=== PATIENT | female | born 1940 | race American Indian/Alaskan Native ===

== ENCOUNTER 2017-11-11 20:04 | Inpatient (IN) | payer MEDICARE ==
--- NOTE | 2017-11-11 21:03 | ED PDOC ---
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 Patient states that she does not feel like herself.A bit confused at times. Patient's family states Patient was recently discharged from [facility] and received 1 radiation treatment 2 weeks ago. Patient denies any headaches, dizziness,fever,neck,back pain or any other complaints at this time. Neurosurgeon: Dr. Guerra PMD: Dr. Johnson Time/Duration: < week Symptom Onset: Gradual Symptom Course: Worsening Activities at Onset: Rest Context: Home Past Medical History - Provider Review Nursing Documentation Reviewed: Yes - Cardiac Hx Cardiac Disorders: Yes Hx Hypertension: Yes - Pulmonary Hx Respiratory Disorders: No - Neurological Hx Neurological Disorder: Yes Other/Comment: BRAIN TUMOR, VENTRICULAR SHUNT - HEENT Hx HEENT Disorder: No - Renal Hx Renal Disorder: No - Endocrine/Metabolic Hx Endocrine Disorders: No - Hematological/Oncological Hx Blood Disorders: No - Integumentary Hx Dermatological Disorder: No - Musculoskeletal/Rheumatological Hx Unsteady Gait: Yes - Gastrointestinal Hx Gastrointestinal Disorders: No - Genitourinary/Gynecological Hx Genitourinary Disorders: No - Psychiatric Hx Psychophysiologic Disorder: No Hx Substance Use: No - Surgical History Other/Comment: VENTRICULAR SHUNT Family/Social History - Physician Review Nursing Documentation Reviewed: Yes Family/Social History: No Known Family HX Smoking Status: Never Smoked Hx Alcohol Use: No Hx Substance Use: No Allergies/Home Meds Allergies/Adverse Reactions: Allergies ANTHONY Inhibitors Allergy (Verified 11/11/17 20:18) SWELLING Penicillins Allergy (Verified 11/11/17 20:18) SWELLING Home Medications: Home Meds Medication Instructions Recorded Confirmed Apixaban [Eliquis] 5 mg PO DAILY 11/11/17 11/11/17 Carvedilol [Coreg] 12.5 mg PO DAILY 11/11/17 11/11/17 Dexamethasone [Decadron] 4 mg PO BID 11/11/17 11/11/17 Furosemide [Lasix] 20 mg PO DAILY 11/11/17 11/11/17 Pregabalin [Lyrica] 50 mg PO DAILY 11/11/17 11/11/17 Review of Systems - Physician Review All systems were reviewed & negative as marked: Yes - Review of Systems Constitutional: absent: Fevers, Night Sweats Eyes: absent: Vision Changes ENT: absent: Hearing Changes Respiratory: absent: SOB, Cough Cardiovascular: absent: Chest Pain Gastrointestinal: absent: Abdominal Pain Genitourinary Female: absent: Dysuria Musculoskeletal: absent: Arthralgias Skin: absent: Rash Neurological: Other (decreasing motor skills and movement) Endocrine: absent: Diaphoresis Hemo/Lymphatic: absent: Adenopathy Psychiatric: absent: Anxiety, Depression Physical Exam Vital Signs Reviewed: Yes Vital Signs Temp Pulse Resp BP Pulse Ox 11/11/17 20:05 98 F 74 18 139/85 99 Temperature: Afebrile Blood Pressure: Normal Pulse: Regular Respiratory Rate: Normal Appearance: Positive for: Well-Appearing, Non-Toxic, Comfortable Pain Distress: None Mental Status: Positive for: Alert and Oriented X 3 - Systems Exam Head: Present: Atraumatic, Normocephalic Pupils: Present: PERRL Extroacular Muscles: Present: EOMI Conjunctiva: Present: Normal Mouth: Present: Moist Mucous Membranes Neck: Present: Normal Range of Motion Respiratory/Chest: Present: Clear to Auscultation, Good Air Exchange. No: Respiratory Distress, Accessory Muscle Use Cardiovascular: Present: Regular Rate and Rhythm, Normal S1, S2. No: Murmurs Abdomen: No: Tenderness, Distention, Peritoneal Signs Back: Present: Normal Inspection Upper Extremity: Present: Normal Inspection. No: Cyanosis, Edema Lower Extremity: Present: Normal Inspection. No: Edema Neurological: Present: Other (Finger to Nose unable to complete fully ) Skin: Present: Warm, Dry, Normal Color. No: Rashes Psychiatric: Present: Alert, Oriented x 3, Normal Insight, Normal Concentration Medical Decision Making ED Course and Treatment: 11/11/17 21:15 Impression: 77 year old female complaining of progressively decreasing movement and motor skills for a few days. Plan: -- EKG -- Chest X-ray -- Head CT w/o contrast -- Urinalysis -- Labs -- Reassess and disposition Progress Notes: 11/11/17 22:37 EKG: Ordered, reviewed, and independently interpreted the EKG. Rate : 67 BPM Rhythm : NSR Interpretation : LVH, nonspecific T wave changes 11/11/17 22:50 CT Head Without Intravenous Contrast FINDINGS: Brain: There is mild diffuse cerebral atrophy present, consistent with this patient's age. There is mild diffuse heterogeneity of the white matter attenuation, consistent with chronic white matter ischemic changes. No hemorrhage. Ventricles: The ventricular system demonstrates mild diffuse compensatory enlargement. Bones/joints: Right frontal and parietal patrick holes. Sinuses: There is nonspecific fluid within the maxillary and sphenoid sinuses. Mastoid air cells: Unremarkable as visualized. No mastoid effusion. Tubes, lines and devices: There is a right-sided ventriculostomy shunt catheter entering from a parietal approach and the tip terminates in the midline. There are coarse calcifications in the right frontal lobe along an old ventriculostomy shunt catheter tract. IMPRESSION: Age-related atrophy and chronic white matter ischemic changes, with no evidence of an acute intracranial abnormality. Maxillary and sphenoid sinus fluid suggesting sinusitis. Dictated and Authenticated by: Dana Swann MD 11/11/2017 10:48 PM Eastern Time ([place] & [place]) 11/11/17 23:54 Chest X-ray- No acute process, as read by me. 11/11/17 23:[address] Johnson for admission Altered Mental Status, Dr. Camp , neurologist, on consult. - Lab Interpretations Lab Results: 11/11/17 21:20 11/11/17 21:20 Lab Results 11/11/17 23:02: Urine Color Yellow, Urine Appearance Clear, Urine pH 6.0, Ur Specific [place] 1.025, Urine Protein Negative, Urine Glucose (UA) Negative, Urine Ketones Negative, Urine Blood Small H, Urine Nitrate Negative, Urine Bilirubin Negative, Urine Urobilinogen 0.2, Ur Leukocyte Esterase Trace H, Urine RBC 0 - 2, Urine WBC 1 - 3, Ur Epithelial Cells 0 - 2, Urine Bacteria Large 11/11/17 21:20: WBC 7.7, RBC 2.93 L, Hgb 9.2 L, Hct 28.0 L, MCV 95.6, MCH 31.4, MCHC 32.9, RDW 14.8 H, Plt Count 239, MPV 9.3 11/11/17 21:20: Sodium 146, Potassium 4.3, Chloride 115 H, Carbon Dioxide 22, Anion Gap 14, BUN 31 H, Creatinine 0.9, Est GFR ( Amer) > 60, Est GFR ( Non-Af Amer) > 60, Random Glucose 128 H, Calcium 9.4, Total Bilirubin 0.5, AST 41 H, ALT 19, Alkaline Phosphatase 84, Lactate Dehydrogenase 1153 H, Total Creatine Kinase 31 L, Troponin I < 0.01, Total Protein 6.4, Albumin 3.3, Globulin 3.0, Albumin/Globulin Ratio 1.1 11/11/17 21:20: PT 14.4 H, INR 1.26 H, APTT 28.2 - RAD Interpretation Radiology Orders: 11/11/17 20:51 HEAD W/O CONTRAST [CT] Stat 11/11/17 20:52 CHEST PORTABLE [RAD] Stat - Scribe Statement The provider has reviewed the documentation as recorded by the Scribe Michelle Shea Provider Scribe Attestation: All medical record entries made by the Scribe were at my direction and personally dictated by me. I have reviewed the chart and agree that the record accurately reflects my personal performance of the history, physical exam, medical decision making, and the department course for this patient. I have also personally directed, reviewed, and agree with the discharge instructions and disposition. Disposition/Present on Arrival - Present on Arrival Any Indicators Present on Arrival: No History of DVT/PE: No History of Uncontrolled Diabetes: No Urinary Catheter: No History of Decub. Ulcer: No History Surgical Site Infection Following: None - Disposition Have Diagnosis and Disposition been Completed?: Yes Diagnosis: Altered mental status Disposition: HOSPITALIZED Disposition Time: 23:52 Patient Problems: Current Active Problems Problem Status Onset Altered mental status Acute Condition: STABLE Referrals: Cathy Johnson MD [Primary Care Provider] - Follow up with primary Forms: [employer] ([place])
[2017-11-11 21:34] LABS: HEMOGLOBIN 9.2 g/dL (12.0-16.0); MEAN CELL VOLUME 95.6 fl (80.0-105.0); MEAN CORPUSCULAR HEMOGLOBIN 31.4 pg (25.0-35.0); MEAN CORPUSCULAR HGB CONC 32.9 g/dl (31.0-37.0); MEAN PLATELET VOLUME 9.3 fl (7.0-11.0); RBC 2.93 10^6/uL (3.5-6.1); RED CELL DISTRIBUTION WIDTH 14.8 % (11.5-14.5); WHITE BLOOD COUNT 7.7 10^3/ul (4.5-11.0)
[2017-11-11 21:41] LABS: ALB/GLOB RATIO 1.1 (1.1-1.8); ALBUMIN 3.3 g/dL (3.0-4.8); ALT/SGPT 19 U/L (7-56); AST/SGOT 41 U/L (14-36); BLOOD UREA NITROGEN 31 mg/dL (7-21); CALCIUM 9.4 mg/dL (8.4-10.5); GFR AFRICAN-AMERICAN > 60; GFR NON-AFRICAN AMERICAN > 60
[2017-11-11 21:52] LABS: TROPONIN I < 0.01 ng/mL
[2017-11-11 21:55] LABS: INR 1.26 (0.93-1.08); PARTIAL THROMBOPLASTIN TIME 28.2 Seconds (25.1-36.5); PROTHROMBIN TIME 14.4 SECONDS (9.4-12.5)
--- NOTE | 2017-11-11 22:48 | CT ---
EXAM: CT Head Without Intravenous Contrast CLINICAL HISTORY: 77 years old, female; Signs and symptoms; Dizziness; Additional info: Dizzy/weak TECHNIQUE: Axial computed tomography images of the head/brain without intravenous contrast. All CT scans at this facility use one or more dose reduction techniques, viz.: automated exposure control; ma/kV adjustment per patient size (including targeted exams where dose is matched to indication; i.e. head); or iterative reconstruction technique. Coronal and sagittal reformatted images were created and reviewed. COMPARISON: No relevant prior studies available. FINDINGS: Brain: There is mild diffuse cerebral atrophy present, consistent with this patient's age. There is mild diffuse heterogeneity of the white matter attenuation, consistent with chronic white matter ischemic changes. No hemorrhage. Ventricles: The ventricular system demonstrates mild diffuse compensatory enlargement. Bones/joints: Right frontal and parietal patrick holes. Sinuses: There is nonspecific fluid within the maxillary and sphenoid sinuses. Mastoid air cells: Unremarkable as visualized. No mastoid effusion. Tubes, lines and devices: There is a right-sided ventriculostomy shunt catheter entering from a parietal approach and the tip terminates in the midline. There are coarse calcifications in the right frontal lobe along an old ventriculostomy shunt catheter tract. IMPRESSION: Age-related atrophy and chronic white matter ischemic changes, with no evidence of an acute intracranial abnormality. Maxillary and sphenoid sinus fluid suggesting sinusitis.
[2017-11-11 23:06] LABS: URINE BILIRUBIN NEGATIVE (NEGATIVE); URINE BLOOD SMALL (NEGATIVE); URINE GLUCOSE (UA) NEGATIVE (NEGATIVE); URINE LEUKOCYTE ESTERASE TRACE Leu/uL (NEGATIVE); URINE PROTEIN NEGATIVE mg/dL (<30 mg/dL); URINE UROBILINOGEN 0.2 E.U./dL (<1 E.U./dL)
[2017-11-11 23:07] LABS: URINE APPEARANCE CLEAR (CLEAR); URINE COLOR YELLOW (YELLOW)
[2017-11-11 23:38] LABS: URINE BACTERIA LARGE (NEG); URINE EPITHELIAL CELLS 0 - 2 /hpf (0-5); URINE RBC 0 - 2 /hpf (0-2)
[2017-11-12 05:55] VITALS: BMI 26.6
--- NOTE | 2017-11-12 07:40 | RAD ---
HISTORY: weak COMPARISON: No prior. FINDINGS: LUNGS: There is a right-sided perihilar infiltrate. Due to its asymmetry this is suspicious for pneumonia. The left side is unremarkable PLEURA: No significant pleural effusion identified, no pneumothorax apparent. CARDIOVASCULAR: Normal. OSSEOUS STRUCTURES: No significant abnormalities. VISUALIZED UPPER ABDOMEN: Normal. OTHER FINDINGS: None. IMPRESSION: There is a right-sided perihilar infiltrate. Due to its asymmetry this is suspicious for pneumonia. The left side is unremarkable
[2017-11-12] MEDS: Dexamethasone 4 mg/1 ml IVP SCH ×2 (10:43→16:59)
--- NOTE | 2017-11-12 11:17 | CARD ---
APPROVED REPORT EKG Measurement Heart [id number] ID [id number] <Conclusion> Normal sinus rhythm Left ventricular hypertrophy with QRS widening Nonspecific T wave abnormality Abnormal ECG
--- NOTE | 2017-11-12 13:06 | US ---
PROCEDURE: Bilateral carotid artery duplex ultrasound HISTORY: Carotid stenosis syncope PHYSICIAN(S): Jeremy Rodriguez MD. TECHNIQUE: Duplex sonography and color-flow Doppler were used to evaluate the carotid bifurcations and limited segments of the vertebral arteries bilaterally. FINDINGS: The exam is limited by tortuous vessels. There is focal echogenic plaque noted at the carotid bifurcations bilaterally. The peak systolic velocity in the proximal right internal carotid artery is 81 cm/sec. This corresponds to a 20 to 39% proximal right ICA stenosis. Normal systolic velocities are noted in the proximal right external carotid artery. There is antegrade flow in the right vertebral artery. The peak systolic velocity in the proximal left internal carotid artery is 84 cm/sec. This corresponds to a 20 to 39% proximal left ICA stenosis. Normal systolic velocities are noted in the proximal left external carotid artery. There is antegrade flow in the left vertebral artery. IMPRESSION: 1. Bilateral 20-39% proximal ICA stenoses. 2. Antegrade flow in both vertebral arteries. 3. Limited study due to tortuous vessels
[2017-11-12] MEDS: Meropenem IV 1 gm in NS 50 ML IVPB SCH ×2 (14:58→22:05)
--- NOTE | 2017-11-12 23:36 | CON ---
DATE: 11/12/2017 REASON FOR CONSULT: Known metastatic breast cancer. HISTORY OF PRESENT ILLNESS: The patient is a 77-year-old female who is well known to me with past medical history significant for a metastatic breast cancer with recent diagnosis of brain mets and AUTO OVERHAULER shunt and status post radiation therapy, who presents to the emergency room now with complaints of progressive decreasing movement and motor skill for the last few days. The patient's daughter had called me a few days ago as that she was confused and not able to move around. She was recently discharged from [facility] post radiation treatments, but was not sent home on steroids. She does see a little better today. Denies any headaches, dizziness, fever, neck pain, back pain or any cough at the home. She has had recently progressive breast cancer, but has been unable to get any chemotherapy secondary to multiple other complications. 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 PAST SURGICAL HISTORY: Right mastectomy as well as cardiac procedures. PAST MEDICAL HISTORY: Significant for cardiomyopathy, known metastatic breast cancer as well as hypertension as well as a recent AUTO OVERHAULER shunt. SOCIAL HISTORY: Positive for smoking in the past, but quit several years ago. Denies any alcohol abuse. ALLERGIES: HAS KNOWN ALLERGIES TO ANTHONY INHIBITORS WELL PENICILLIN. MEDICATIONS: Takes Eliquis, Coreg, Decadron, Lasix and Lyrica at home. FAMILY HISTORY: Positive for breast cancer in several family members. REVIEW OF SYSTEMS: As per the HPI. PHYSICAL EXAMINATION: VITAL SIGNS: Her vitals reveal a temperature of 97.6, pulse of 62, respiratory rate of 18 and a blood pressure of 122/72. GENERAL: The patient is an elderly, pleasant female, lying in bed, in no acute distress. HEENT: Head and neck normocephalic, atraumatic. Eyes: Pupils equal, round and reactive to light and accommodation. Extraocular muscles are intact. There is some pallor. No icterus is noted. NECK: Supple with no adenopathy. No JVD. No thyromegaly. LUNGS: Decreased breath sounds bilaterally with no evidence of rhonchi. CARDIOVASCULAR: S1 and S2 are heard. ABDOMEN: Positive bowel sounds, soft, nontender and nondistended. No organomegaly is palpated. EXTREMITIES: There is edema, clubbing or cyanosis. LABORATORY DATA: Her white count is 7.7, hemoglobin is 9.2, hematocrit 28 and a platelet count of 239. Chemistries are within normal limits except for an elevated LDH. She did have a CT scan repeated on admission, which does not reveal any pathology. Chest x-ray also done on admission, it shows a possible right-sided perihilar infiltrate, otherwise unremarkable. ASSESSMENT AND PLAN: Elderly female with known metastatic breast cancer, recent diagnosis of brain metastasis, status post XRT and ventriculoperitoneal shunt, now with altered mental status, currently undergoing a workup. Long discussion with the patient and the family in the past regarding overall poor prognosis. She was about to start chemotherapy with Ixempra on palliative basis again as an outpatient, but is now admitted for the above altered mental status. Continue workup at this point. Also, repeat CBC in the morning to evaluate if she develop further anemia after hydration. Thank you for the consult. We will follow. Julio Cesar Dinh MD
--- NOTE | 2017-11-13 02:26 | CON ---
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 She does not feel like herself and recently discharged from [facility] and received radiation for two weeks. Denies any headache, dizziness. No neck pain or back pain. PAST MEDICAL HISTORY: As above. ALLERGIES: TO ANTHONY INHIBITOR AND PENICILLIN. HOME MEDICATIONS: Eliquis, Coreg, Decadron, Lasix and Lyrica. REVIEW OF SYSTEMS: A 10-point review of systems was negative. PHYSICAL EXAMINATION: HEENT: Normocephalic, atraumatic. NECK: Supple. NEUROLOGIC: Awake, oriented to self. Pupils reactive. EOM intact. Visual field full. No facial asymmetry. Tongue midline. Motor examination: Spontaneous movement of the extremities noted. Deep tendon reflexes 1+, both plantars are downgoing. Sensory appears intact. Cerebellar and gait, deferred. IMPRESSION: Altered mental status and brain mets with cancer of the breast. CAT scan of the head was negative. Workup in progress. PLAN: Continue present management. We will follow up. Panchito Camp MD
--- NOTE | 2017-11-13 04:44 | HP ---
HISTORY OF PRESENT ILLNESS: Patient is a 77-year-old black female who was brought in by daughter after she was having progressive weakness and has difficulty walking. Patient's daughter said, almost a week ago she was able to walk around, but lately she was unable to get even out of bed and she was also acting strange. So, she brought her to emergency room for further evaluation. I had a talk with Dr. Dinh. According to her she stopped taking her Decadron. Probably that would be the reason that she developed generalized weakness. Denies any fever or chills. No history of nausea, vomiting or diarrhea. Denies any fall. No trauma. PAST MEDICAL HISTORY: Significant for breast cancer that was diagnosed in 2002. When she was diagnosed it was stage III already and she has been getting chemo by Dr. Dinh. 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 Guerra. ALLERGIES: SHE IS ALLERGIC TO ANTHONY INHIBITORS AND PENICILLIN. MEDICATIONS AT HOME: She is on carvedilol (Coreg ) 12.5 daily, Decadron 4 mg twice a day, Lasix 20 mg daily, Lyrica 50 mg daily, and Eliquis 5 mg daily. SOCIAL HISTORY: She lives with her daughter. Denies smoking, drinking, or alcohol use. REVIEW OF SYSTEMS: Has generalized weakness, but no focal deficit. PHYSICAL EXAMINATION: GENERAL: She is awake, alert, oriented, able to communicate. VITAL SIGNS: She is afebrile, pulse 64, respirations 20, blood pressure 102/67. LUNGS: Bilateral good airflow. No rhonchi or crackles. HEART: S1 and S2 audible. ABDOMEN: Soft. Nontender. No rebound. No guarding. NEUROLOGIC: She is awake and alert, able to communicate. Moves all extremities, but has generalized weakness. LABORATORY DATA: WBC 7.7, hemoglobin 9.2, hematocrit 28, platelets 239, PT 14.4, INR 1.26. Chemistry, sodium 146, potassium 4.3, chloride 115, CO2 22, BUN 31, creatinine 0.9, blood sugar of 128. LFTs are within normal limits. AST 41. Lactate dehydrogenase is 1153, CPK 31. Urinalysis shows small blood. She had EKG done that shows normal sinus rhythm, left ventricular hypertrophy. CT scan of the head shows age related atrophy and chronic white matter ischemic changes with no evidence of acute intracranial abnormality. X-ray chest shows right-sided perihilar infiltrates, questionable pneumonia. ASSESSMENT: 1. Progressive weakness. 2. Metastatic breast cancer with brain metastasis. 3. Deconditioning and difficulty walking. 4. Hypertension. 5. Questionable pneumonia. PLAN: Patient has been started on IV Decadron. She is on doxycycline, and will continue on Eliquis. I will order for CT scan of the chest. Order for physical therapy and make further recommendations after CT scan of the chest is available and after physical therapy evaluation for subacute rehab, and restarted on Decadron also. Cathy Johnson MD
--- NOTE | 2017-11-13 08:49 | CON ---
DATE: 11/12/2017 LOCATION: The patient is in bed, has seen earlier today in 575, bed 1. The patient's daughter is present at the bedside. CHIEF COMPLAINT: Weakness times several days and change in mental status. HISTORY OF PRESENT ILLNESS: This is a 77-year-old female with breast cancer with central nervous system metastasis, hypertension, coronary artery disease who was admitted with altered mental status and daughter states that she is somewhat back to her baseline; however, she is still significantly ill. There is mild shortness of breath. No chest pain. There is no abdominal pain, diarrhea or constipation. No new headaches. REVIEW OF SYSTEMS: Reveals a 12-point review of systems is performed. PAST MEDICAL HISTORY: Significant for breast cancer with central nervous system metastasis, hypertension and coronary artery disease. PAST SURGICAL HISTORY: Significant for BULLET MAKER shunt. ALLERGIES: THE PATIENT IS ALLERGIC TO PENICILLIN AND ANTHONY INHIBITORS. MEDICATIONS AT HOME: Include Eliquis and the patient is on Decadron 4 mg b.i.d., carvedilol, furosemide and Lyrica. PHYSICAL EXAMINATION GENERAL: The patient is in bed, in no acute distress; however, chronically ill, debilitated. VITAL SIGNS: Temperature of 98 and blood pressure is 112/80. HEENT: Unremarkable. NECK: Supple. LUNGS: Have decreased breath sounds. HEART: Normal S1 and S2. ABDOMEN: Soft, nontender. LABORATORY DATA: Reveals the patient has a white count of 7.7, hemoglobin of 9. Chemistries are noted. BUN of 31, creatinine of 0.9. Urinalysis is noted. Microbiology is noted. The patient's chest x-ray is reported to be positive right-sided perihilar infiltrate. ASSESSMENT AND PLAN: This is a 77-year-old female with breast cancer with central nervous system metastasis, hypertension, coronary artery disease with healthcare-associated pneumonia, change in mental status, which is improving, procalcitonin was less than 0.05, speaks against bacterial pneumonia. We will check on the cultures, blood cultures and urine and sputum cultures and start the patient on doxycycline and meropenem. Overall prognosis is quite poor. We will follow with you. Jovan James MD
[2017-11-13] MEDS: Meropenem IV 1 gm in NS 50 ML IVPB SCH ×2 (10:53→21:41)
[2017-11-13] MEDS: Dexamethasone 4 mg/1 ml IVP SCH (10:54)
--- NOTE | 2017-11-13 12:45 | CT ---
PROCEDURE: CT Chest without contrast HISTORY: sob COMPARISON: None. TECHNIQUE: Contiguous axial images were obtained through the chest without intravenous contrast enhancement. Sagittal and coronal reconstructions were performed. Radiation dose (DLP): 716 mGy-cm. This CT exam was performed using one or more of the following dose reduction techniques: Automated exposure control, adjustment of the mA and/or kV according to patient size, and/or use of iterative reconstruction technique. FINDINGS: LUNGS: Clear lungs. Visualized airway clear. MEDIASTINUM: Unremarkable thoracic aorta. No aneurysm. Normal sized heart. Main pulmonary artery unremarkable. No vascular congestion. No lymphadenopathy. PLEURA: No pleural fluid. No pneumothorax. BONES: There is a large right anterior chest wall mass with destruction of the 4th and 5th ribs. The mass measures 5 x 8.4 cm. UPPER ABDOMEN: Grossly unremarkable. OTHER FINDINGS: None. IMPRESSION: There is a large right anterior chest wall mass with destruction of the 4th and 5th ribs. The mass measures 5 x 8.4 cm.
--- NOTE | 2017-11-13 22:09 | CP.PCM.PN ---
Subjective - Date & Time of Evaluation Date of Evaluation: 11/13/17 Time of Evaluation: 13:45 - Subjective Subjective: Patient is more awake and alert. No fevers. Objective - Vital Signs/Intake and Output Vital Signs (last 24 hours): Temp Pulse Resp BP Pulse Ox 98.1 F 66 18 132/72 100 11/13/17 14:00 11/13/17 14:00 11/13/17 14:00 11/13/17 14:00 11/13/17 14:00 Intake and Output: 11/13/17 11/14/17 18:59 06:59 Intake Total 300 Balance 300 - Medications Medications: Current Medications Acetaminophen (Tylenol 325mg Tab) 650 mg PO Q6H PRN PRN Reason: Fever >100.4 F Apixaban (Eliquis) 5 mg PO DAILY [facility] PRN Reason: Protocol Last Admin: 11/13/17 10:54 Dose: 5 mg Carvedilol (Coreg) 12.5 mg PO DAILY [facility] Last Admin: 11/13/17 10:54 Dose: 12.5 mg Dexamethasone (Decadron Inj) 4 mg IVP TID [facility] Doxycycline Hyclate (Doryx) 100 mg PO Q12 [facility] PRN Reason: Protocol Stop: 11/21/17 22:01 Last Admin: 11/13/17 21:41 Dose: 100 mg Meropenem (Merrem Iv 1 Gm Premix) 50 mls @ 100 mls/hr IVPB Q12 [facility] PRN Reason: Protocol Last Admin: 11/13/17 21:41 Dose: 100 mls/hr Ondansetron HCl (Zofran Inj) 4 mg IVP Q6H PRN PRN Reason: Nausea/Vomiting Pregabalin (Lyrica) 50 mg PO DAILY [facility] Last Admin: 11/13/17 10:54 Dose: 50 mg - Labs Labs: PT 14.4 SECONDS (9.4-12.5) H 11/11/17 21:20 INR 1.26 (0.93-1.08) H 11/11/17 21:20 APTT 28.2 Seconds (25.1-36.5) 11/11/17 21:20 - Constitutional Appears: Chronically Ill - Respiratory Exam Respiratory Exam: Decreased Breath Sounds Additional comments: left anterior chest wall port in place - Cardiovascular Exam Cardiovascular Exam: +S1, +S2 - GI/Abdominal Exam GI & Abdominal Exam: Soft. absent: Tenderness Assessment and Plan - Assessment and Plan (Free Text) Plan: Assessment S/P altered mental status R/O sepsis R/O bacteremia breast cancer with DAYTIME BABYSITTER metastases CAD Plan on Doxcycycline and Merrem; CT chest was done which does not show infiltrates but shows a mass, probably metastasis follow up repeat urine cx and blood cx - will d/c antibiotics if cultures are negative will monitor clinically overall prognosis is poor
--- NOTE | 2017-11-13 22:53 | PN ---
DATE: SUBJECTIVE: The patient is a 77-year-old, seen and examined, lying in bed. Seems to be comfortable. Complaining of generalized weakness. Complaining of difficulty walking. No nausea or vomiting. No diarrhea. OBJECTIVE: VITAL SIGNS: She is afebrile, pulse 66, respirations 18, blood pressure 132/72. LUNGS: Bilateral good airflow. No rhonchi or crackle. HEART: S1 and S2 audible. ABDOMEN: Soft. Nontender. No rebound. No guarding. NEUROLOGIC: She is awake, alert, oriented, communicative. Had generalized weakness. LABORATORY DATA: Procalcitonin is 0.05. DIAGNOSTIC DATA: She had CT scan of the chest done that shows large right anterior chest wall mass with destruction of the fourth and fifth rib. The mass may of 5 x 8.4 cm otherwise lungs are clear. ASSESSMENT: 1. Metastatic stage IV right breast cancer. 2. Status post mastectomy. 3. Status post radiation and chemotherapy. 4. Brain metastasis. 5. Status post ventriculoperitoneal shunt. 6. Generalized weakness, difficulty walking. PLAN: CT scan shows no evidence of pneumonia. However, patient is on doxycycline and meropenem and procalcitonin is low probably antibiotic can be discontinued, leave it up to ID discretion. However, patient is currently on Decadron 4 mg twice a day, can increase to t.i.d. Arrangement is being made to send her to subacute rehab. Once the arrangement is made, patient can be transferred to subacute rehab. Cathy Johnson MD
[2017-11-14] MEDS ORDERED: Dexamethasone 4 mg/1 ml IVP SCH (10:00)
[2017-11-14] MEDS: Meropenem IV 1 gm in NS 50 ML IVPB SCH ×2 (10:59→21:03)
[2017-11-14] MEDS: Vancomycin 1gm in NS 250ml 1 GM/250 ML BAG IVPB SCH (21:04)
--- NOTE | 2017-11-15 01:39 | PN ---
DATE: 11/14/2017 SUBJECTIVE: The patient was seen earlier this morning, bed 1. PHYSICAL EXAMINATION: VITAL SIGNS: Temperature is 97, blood pressure is 118/60, respiratory rate is 16. HEENT: Unremarkable. NECK: Supple. LUNGS: Have decreased breath sounds. HEART: Normal S1, S2. ABDOMEN: Soft. LABORATORY EXAMINATION: Reveals a white count of 7.7, hemoglobin of 9. Chemistries reveals a BUN of 31, creatinine of 0.9 and procalcitonin is less than 0.05. Microbiology is noted with Gram-positive cocci. Blood cultures are waiting for identification and sensitivity. ASSESSMENT AND PLAN: This is a 77-year-old female with altered mental status with Gram-positive cocci bacteremia, on doxycycline and meropenem. We will give dose of vancomycin. Pending further identification and sensitivity of the organism. Jovan James MD
[2017-11-15] MEDS: Meropenem IV 1 gm in NS 50 ML IVPB SCH ×3 (05:34→23:25)
[2017-11-15] MEDS: Vancomycin 1gm in NS 250ml 1 GM/250 ML BAG IVPB SCH ×2 (09:50→23:26)
--- NOTE | 2017-11-15 11:03 | DS ---
HISTORY OF PRESENT ILLNESS: The patient is a 77 years old, seen and examined, lying in bed, seems to become comfortable.. She came in because of difficulty walking according to Dr. Dinh. She stopped taking Decadron and developed this weakness. No nausea, vomiting. No diarrhea. PHYSICAL EXAMINATION: VITAL SIGNS: She is afebrile, pulse 65, respirations 20, blood pressure 158/77. LUNGS: Bilateral good airflow, no rhonchi or crackle. HEART: S1, S2 audible. ABDOMEN: Soft, nontender, no rebound, no guarding. NEUROLOGIC: She is awake and alert, communicative, has generalized weakness. LABORATORY DATA: Procalcitonin is 0.05. Blood cultures, urine cultures are negative. ASSESSMENT AND PLAN: 1. Generalized weakness. 2. History of right breast carcinoma, status post mastectomy followed by radiation and chemotherapy. 3. Brain metastasis. 4. Bony metastasis. 5. Deconditioning and difficulty walking. 6. Right anterior chest wall mass with 4th and 5th rib destruction. PLAN: Currently, the patient is on Carvedilol. She is on dexamethasone 4 mg 3 times a day. We will cut down to 4 mg twice a day and we will switch it to p.o. The patient will be accepted in care center and being discharged to care center there. The patient need to stay on current regimen. Discussed with Dr. James. We will stop her IV antibiotic also since procalcitonin is low and there is no evidence of infiltrate. Cathy Johnson MD
--- NOTE | 2017-11-15 12:59 | PN ---
DATE: 11/15/2017 SUBJECTIVE: The patient is 77 years old, seen and examined, very tired, unable to get out of chair or stand up. Otherwise, eating and tolerating. No fever. No chills. No nausea or vomiting. No diarrhea. PHYSICAL EXAMINATION: VITAL SIGNS: She is afebrile, pulse 64, respirations 20, blood pressure 154/89. LUNGS: Bilateral good airflow. No rhonchi or crackle. HEART: S1 and S2 audible. ABDOMEN: Soft. Nontender. No rebound. No guarding. NEUROLOGIC: The patient is awake, alert, oriented, able to communicate, has generalized weakness. LABORATORY EXAM: WBC is 7.7, hemoglobin 9.2, hematocrit 28, platelet Of 239. PT 14.4, INR 1.26. Chemistry: Blood sugar is 129. ASSESSMENT: 1. Generalized osteoarthritis. 2. Generalized weakness. 3. Right breast cancer, status post mastectomy. 4. Brain metastasis. 5. Deconditioning and difficulty walking. 6. Blood culture positive for coagulase-negative Staphylococcus. PLAN: The patient is empirically on IV antibiotic. We will repeat blood cultures and follow the identity of the bacteria and make further recommendation if it is contaminant or if real infection and then we will make discharge plan. [employer] are trying to get her into rehab, but she has not been accepted in [facility] or [facility]. The patient's daughter do not want her to go to [facility]. So eventually she might be able to go home with home therapy. Cathy Johnson MD
--- NOTE | 2017-11-15 14:10 | CP.PCM.PN ---
Subjective - Date & Time of Evaluation Date of Evaluation: 11/15/17 Time of Evaluation: 12:30 - Subjective Subjective: Patient frustrated about options after hospital stay, no fevers. Objective - Vital Signs/Intake and Output Vital Signs (last 24 hours): Temp Pulse Resp BP Pulse Ox 98.1 F 64 20 154/89 H 98 11/15/17 08:28 11/15/17 08:28 11/15/17 08:28 11/15/17 08:28 11/15/17 08:28 Intake and Output: 11/15/17 11/15/17 06:59 18:59 Intake Total 240 Balance 240 - Medications Medications: Current Medications Acetaminophen (Tylenol 325mg Tab) 650 mg PO Q6H PRN PRN Reason: Fever >100.4 F Apixaban (Eliquis) 5 mg PO DAILY [facility] PRN Reason: Protocol Last Admin: 11/15/17 09:51 Dose: 5 mg Carvedilol (Coreg) 12.5 mg PO DAILY [facility] Last Admin: 11/15/17 09:51 Dose: 12.5 mg Docusate Sodium (Colace) 100 mg PO DAILY [facility] Last Admin: 11/15/17 09:51 Dose: 100 mg Meropenem (Merrem Iv 1 Gm Premix) 50 mls @ 100 mls/hr IVPB Q8 [facility] PRN Reason: Protocol Stop: 11/23/17 22:01 Last Admin: 11/15/17 05:34 Dose: 100 mls/hr Vancomycin HCl (Vancomycin 1gm) 1 gm in 250 mls @ 167 mls/hr IVPB Q12H [facility] PRN Reason: Protocol Stop: 11/23/17 20:01 Last Admin: 11/15/17 09:50 Dose: 167 mls/hr Levetiracetam (Keppra) 250 mg PO BID [facility] Last Admin: 11/15/17 09:51 Dose: 250 mg Ondansetron HCl (Zofran Inj) 4 mg IVP Q6H PRN PRN Reason: Nausea/Vomiting Pregabalin (Lyrica) 50 mg PO DAILY [facility] Last Admin: 11/15/17 09:51 Dose: 50 mg - Labs Labs: PT 14.4 SECONDS (9.4-12.5) H 11/11/17 21:20 INR 1.26 (0.93-1.08) H 11/11/17 21:20 APTT 28.2 Seconds (25.1-36.5) 11/11/17 21:20 - Constitutional Appears: Chronically Ill - Head Exam Head Exam: NORMAL INSPECTION - ENT Exam ENT Exam: Mucous Membranes Moist - Neck Exam Neck Exam: absent: Meningismus - Respiratory Exam Respiratory Exam: Decreased Breath Sounds Additional comments: left anterior chest wall port intact - Cardiovascular Exam Cardiovascular Exam: +S1, +S2 - GI/Abdominal Exam GI & Abdominal Exam: Soft. 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
[2017-11-16] MEDS: Meropenem IV 1 gm in NS 50 ML IVPB SCH (05:29)
[2017-11-16] MEDS: Vancomycin 1.5 GM in Sodium Chloride 0.9% 500 ML IVPB SCH ×2 (09:19→20:04)
--- NOTE | 2017-11-16 13:09 | PN ---
DATE: 11/16/2017 SUBJECTIVE: The patient is a 77 years old, seen and examined, lying in bed, seems to be comfortable, upset that she is not being accepted in any rehab. Denies any nausea or vomiting. No diarrhea, no fever, no chills. PHYSICAL EXAMINATION: VITAL SIGNS: She is afebrile, pulse 83, respirations 20, blood pressure 126/75. LUNGS: Bilateral good airflow. No rhonchi or crackles. HEART: S1 and S2 audible. ABDOMEN: Soft. Nontender. No rebound. No guarding. NEUROLOGIC: She is awake, alert, oriented, communicative. LABORATORY DATA: Two blood cultures positive for Gram-negative Staph. Repeat cultures are pending. Urine cultures are negative. ASSESSMENT: 1. Coagulase-negative bacteremia. 2. Right breast cancer with metastasis to the brain. 3. Right anterior chest wall mass with destruction of 4th and 5th rib. 4. Deconditioning and difficulty walking. PLAN: Awaiting second set of blood cultures and in the meantime, we will continue the patient on vancomycin. I spoke to Dr. Watts. If repeat cultures are positive, we might have to either remove Port-A-Cath or do antibiotic lock. Discussed with the patient's daughter. Cathy Johnson MD
--- NOTE | 2017-11-16 13:49 | CP.PCM.PN ---
Subjective - Date & Time of Evaluation Date of Evaluation: 11/16/17 Time of Evaluation: 12:50 - Subjective Subjective: No fevers, not in distress. Objective - Vital Signs/Intake and Output Vital Signs (last 24 hours): Temp Pulse Resp BP Pulse Ox 97.7 F 61 18 107/62 100 11/15/17 14:00 11/15/17 14:00 11/15/17 14:00 11/15/17 14:00 11/15/17 14:00 Intake and Output: 11/16/17 11/16/17 06:59 18:59 Intake Total 120 Balance 120 - Medications Medications: Current Medications Acetaminophen (Tylenol 325mg Tab) 650 mg PO Q6H PRN PRN Reason: Fever >100.4 F Apixaban (Eliquis) 5 mg PO DAILY [facility] PRN Reason: Protocol Last Admin: 11/15/17 09:51 Dose: 5 mg Carvedilol (Coreg) 12.5 mg PO DAILY [facility] Last Admin: 11/15/17 09:51 Dose: 12.5 mg Docusate Sodium (Colace) 100 mg PO DAILY [facility] Last Admin: 11/15/17 09:51 Dose: 100 mg Meropenem (Merrem Iv 1 Gm Premix) 50 mls @ 100 mls/hr IVPB Q8 [facility] PRN Reason: Protocol Stop: 11/23/17 22:01 Last Admin: 11/16/17 05:29 Dose: 100 mls/hr Vancomycin HCl (Vancomycin 1gm) 1 gm in 250 mls @ 167 mls/hr IVPB Q12H [facility] PRN Reason: Protocol Stop: 11/23/17 20:01 Last Admin: 11/15/17 23:26 Dose: 167 mls/hr Levetiracetam (Keppra) 250 mg PO BID [facility] Last Admin: 11/15/17 17:00 Dose: 250 mg Ondansetron HCl (Zofran Inj) 4 mg IVP Q6H PRN PRN Reason: Nausea/Vomiting Pregabalin (Lyrica) 50 mg PO DAILY [facility] Last Admin: 11/15/17 09:51 Dose: 50 mg - Labs Labs: PT 14.4 SECONDS (9.4-12.5) H 11/11/17 21:20 INR 1.26 (0.93-1.08) H 11/11/17 21:20 APTT 28.2 Seconds (25.1-36.5) 11/11/17 21:20 - Constitutional Appears: Chronically Ill - Head Exam Head Exam: NORMAL INSPECTION - Neck Exam Neck Exam: absent: Meningismus - Respiratory Exam Respiratory Exam: Decreased Breath Sounds Additional comments: left anterior chest wall port in place - Cardiovascular Exam Cardiovascular Exam: +S1, +S2 - GI/Abdominal Exam GI & Abdominal Exam: Soft. 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 Johnson
[2017-11-17] MEDS: Vancomycin 1.5 GM in Sodium Chloride 0.9% 500 ML IVPB SCH ×2 (09:01→19:35)
--- NOTE | 2017-11-17 10:58 | PN ---
DATE: 11/17/2017 SUBJECTIVE: The patient has no complaints of any chest pain. No shortness of breath. No headaches or dizziness. PHYSICAL EXAMINATION: VITAL SIGNS: Temperature is 98.5, pulse of 82, blood pressure is 117/63, respirations 20. GENERAL: The patient is lying in bed, flat, comfortable. HEENT: No oral lesion. Anicteric sclerae. Moist mucosa. NECK: No JVD, adenopathy, or thyromegaly. CARDIOVASCULAR: S1 and S2, regular. No murmurs, rubs, or gallops. LUNGS: Clear to auscultation bilaterally. No wheeze, rales, or rhonchi. ABDOMEN: Bowel sounds are positive, soft, nontender and nondistended. EXTREMITIES: No cyanosis, clubbing or edema. LABORATORY DATA: White count of 7.7, hemoglobin of 9.2. Creatinine 0.9. ASSESSMENT: 1. Breast cancer with metastasis to brain. 2. Bacteremia. 3. Right chest mass with destruction of fourth and fifth rib. 4. Gait dysfunction. 5. Penicillin allergy. 6. Delirium, improved. PLAN: The patient is on carvedilol. The patient is going to continue on Eliquis for anticoagulation. The patient is on Keppra because of the mets to the brain and seizure prophylaxis. The patient is on Zofran as needed. The patient is on vancomycin for antibiotics. The patient's blood cultures that were repeated are negative. We will repeat the patient's blood work tomorrow. Tony Zaragoza MD
--- NOTE | 2017-11-17 15:12 | CP.PCM.PN ---
Subjective - Date & Time of Evaluation Date of Evaluation: 11/17/17 Time of Evaluation: 14:15 - Subjective Subjective: Comfortable in bed, no fevers. Objective - Vital Signs/Intake and Output Vital Signs (last 24 hours): Temp Pulse Resp BP Pulse Ox 98.5 F 82 20 117/63 98 11/16/17 22:00 11/16/17 22:00 11/16/17 22:00 11/16/17 22:00 11/16/17 22:00 Intake and Output: 11/17/17 11/17/17 06:59 18:59 Intake Total 120 100 Balance 120 100 - Medications Medications: Current Medications Acetaminophen (Tylenol 325mg Tab) 650 mg PO Q6H PRN PRN Reason: Fever >100.4 F Apixaban (Eliquis) 5 mg PO DAILY [facility] PRN Reason: Protocol Last Admin: 11/16/17 09:21 Dose: 5 mg Carvedilol (Coreg) 12.5 mg PO DAILY [facility] Last Admin: 11/16/17 09:21 Dose: 12.5 mg Docusate Sodium (Colace) 100 mg PO DAILY [facility] Last Admin: 11/16/17 09:22 Dose: 100 mg Vancomycin HCl 1.5 gm/ Sodium (Chloride) 500 mls @ 167 mls/hr IVPB Q12H [facility] PRN Reason: Protocol Last Admin: 11/16/17 20:04 Dose: 167 mls/hr Levetiracetam (Keppra) 250 mg PO BID [facility] Last Admin: 11/16/17 17:38 Dose: 250 mg Ondansetron HCl (Zofran Inj) 4 mg IVP Q6H PRN PRN Reason: Nausea/Vomiting Pregabalin (Lyrica) 50 mg PO DAILY [facility] Last Admin: 11/16/17 09:19 Dose: 50 mg - Labs Labs: PT 14.4 SECONDS (9.4-12.5) H 11/11/17 21:20 INR 1.26 (0.93-1.08) H 11/11/17 21:20 APTT 28.2 Seconds (25.1-36.5) 11/11/17 21:20 - Constitutional Appears: Chronically Ill - Head Exam Head Exam: NORMAL INSPECTION - ENT Exam ENT Exam: Mucous Membranes Moist - Neck Exam Neck Exam: absent: Meningismus - Respiratory Exam Respiratory Exam: Decreased Breath Sounds Additional comments: left anterior chest wall port in place - Cardiovascular Exam Cardiovascular Exam: +S1, +S2 - GI/Abdominal Exam GI & Abdominal Exam: Soft. 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 Johnson
[2017-11-18 06:23] LABS: MEAN CELL VOLUME 96.9 fl (80.0-105.0); MEAN CORPUSCULAR HEMOGLOBIN 31.3 pg (25.0-35.0); MEAN CORPUSCULAR HGB CONC 32.3 g/dl (31.0-37.0); MEAN PLATELET VOLUME 9.4 fl (7.0-11.0); RBC 2.88 10^6/uL (3.5-6.1); WHITE BLOOD COUNT 4.7 10^3/ul (4.5-11.0)
[2017-11-18 06:46] LABS: ALB/GLOB RATIO 0.9 (1.1-1.8); ALBUMIN 2.3 g/dL (3.0-4.8); ALT/SGPT 33 U/L (7-56); AST/SGOT 36 U/L (14-36); BLOOD UREA NITROGEN 19 mg/dL (7-21); CALCIUM 8.2 mg/dL (8.4-10.5); GFR AFRICAN-AMERICAN > 60; GFR NON-AFRICAN AMERICAN > 60
[2017-11-18] MEDS: Vancomycin 1.5 GM in Sodium Chloride 0.9% 500 ML IVPB SCH ×2 (08:47→22:00)
--- NOTE | 2017-11-18 13:19 | PN ---
DATE: 11/18/2017 SUBJECTIVE: The patient is a 77-year-old, seen and examined, lying in bed, seems to be comfortable. No nausea or vomiting. No diarrhea. Complaining of generalized weakness and difficulty walking. OBJECTIVE: VITAL SIGNS: She is afebrile, pulse 84, respirations 18, blood pressure 102/98. LUNGS: Bilateral fair airflow. No rhonchi or crackles. HEART: S1 and S2 audible. ABDOMEN: Soft, nontender, no rebound, no guarding. NEUROLOGIC: She is awake, alert, oriented, communicative. LABORATORY EXAM: WBC is 4.7, hemoglobin 9, hematocrit 27, platelets of 146. Chemistry: Sodium 142, potassium 4.2, chloride 110, CO2 of 28. BUN 19, creatinine 0.6. Blood sugar of 83. Her four sets of blood cultures are positive for coag-negative Staph. The patient has Port-A-Cath, on chemotherapy. ASSESSMENT: 1. Deconditioning and difficulty walking. 2. Bacteremia. 3. History of cancer breast, on chemotherapy. Her last chemo was almost a year ago. 4. Paroxysmal atrial fibrillation. PLAN: We will order for an echocardiogram. I will request Dr. Collins to evaluate the patient. We need to remove Port-A-Cath, spoke to Dr. Dinh. She has no intention to give her chemotherapy near future. Spoke to patient, explained to her, she seems to agree. I will inform her daughter, Alena also. Cathy Johnson MD
--- NOTE | 2017-11-18 13:54 | CP.PCM.CON ---
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 The patient also reports progressive weakness in conjunction with diffculty ambulating. Patient denies any dizziness, changes in vision, headache, nausea, vomiting, syncopal episodes, chest pain, shortness of breath, fever, chills, or any other complaints. Surgery was consulted for a removal of a port a cath secondary to infection. Past medical history: hypertension, coronary artery disease, breast cancer with brain metastasis Past surgical history: Cholecystectomy, mastectomy Medications: Carvedilol, Furosemide, Lyrica Allergies: ANTHONY inhibitors, Penicillin Social history: Denies smoking or illicit drug use. Social drinker. Lives with daughter Review of Systems - Constitutional Constitutional: As Per HPI - EENT Eyes: As Per HPI Nose/Mouth/Throat: As Per HPI - Breasts Breasts: As Per HPI - Cardiovascular Cardiovascular: As Per HPI - Respiratory Respiratory: As Per HPI - Gastrointestinal Gastrointestinal: As Per HPI - Musculoskeletal Musculoskeletal: As Per HPI - Integumentary Integumentary: As Per HPI - Neurological Neurological: As Per HPI - Psychiatric Psychiatric: As Per HPI - Endocrine Endocrine: As Per HPI Past Patient History - Past Social History Smoking Status: Never Smoked - CARDIAC Hx Cardiac Disorders: Yes Hx Hypertension: Yes - PULMONARY Hx Respiratory Disorders: No - NEUROLOGICAL Hx Neurological Disorder: Yes Other/Comment: BRAIN TUMOR, VENTRICULAR SHUNT - HEENT Hx HEENT Problems: No - RENAL Hx Chronic Kidney Disease: No - ENDOCRINE/METABOLIC Hx Endocrine Disorders: No - HEMATOLOGICAL/ONCOLOGICAL Hx Blood Disorders: No - INTEGUMENTARY Hx Dermatological Problems: No - MUSCULOSKELETAL/RHEUMATOLOGICAL Hx Falls: Yes Hx Unsteady Gait: Yes - GASTROINTESTINAL Hx Gastrointestinal Disorders: No - GENITOURINARY/GYNECOLOGICAL Hx Genitourinary Disorders: No - PSYCHIATRIC Hx Psychophysiologic Disorder: No - SURGICAL HISTORY Other/Comment: VENTRICULAR SHUNT Meds Allergies/Adverse Reactions: Allergies Allergy/AdvReac Type Severity Reaction Status Date / Time ANTHONY Inhibitors Allergy SWELLING Verified 11/11/17 20:18 Penicillins Allergy SWELLING Verified 11/11/17 20:18 - Medications Medications: Current Medications Acetaminophen (Tylenol 325mg Tab) 650 mg PO Q6H PRN PRN Reason: Fever >100.4 F Apixaban (Eliquis) 5 mg PO DAILY [facility] PRN Reason: Protocol Last Admin: 11/18/17 12:53 Dose: 5 mg Carvedilol (Coreg) 12.5 mg PO DAILY [facility] Last Admin: 11/18/17 12:53 Dose: 12.5 mg Docusate Sodium (Colace) 100 mg PO DAILY [facility] Last Admin: 11/18/17 12:53 Dose: 100 mg Vancomycin HCl 1.5 gm/ Sodium (Chloride) 500 mls @ 167 mls/hr IVPB Q12H [facility] PRN Reason: Protocol Last Admin: 11/18/17 08:47 Dose: 167 mls/hr Levetiracetam (Keppra) 250 mg PO BID [facility] Last Admin: 11/18/17 12:53 Dose: 250 mg Ondansetron HCl (Zofran Inj) 4 mg IVP Q6H PRN PRN Reason: Nausea/Vomiting Pregabalin (Lyrica) 50 mg PO DAILY [facility] Last Admin: 11/18/17 12:53 Dose: 50 mg Physical Exam - Head Exam Head Exam: ATRAUMATIC, NORMAL INSPECTION, NORMOCEPHALIC - Eye Exam Eye Exam: EOMI, Normal appearance - ENT Exam ENT Exam: Mucous Membranes Moist - Respiratory Exam Respiratory Exam: NORMAL BREATHING PATTERN - Cardiovascular Exam Cardiovascular Exam: REGULAR RHYTHM - GI/Abdominal Exam GI & Abdominal Exam: Normal Bowel Sounds, Soft - Back Exam Back exam: NORMAL INSPECTION. absent: paraspinal tenderness - Neurological Exam Neurological exam: Alert, CN II-XII Intact - Psychiatric Exam Psychiatric exam: Normal Affect, Normal Mood - Skin Skin Exam: Dry, Intact Results - Vital Signs Recent Vital Signs: Last Vital Signs Temp 98.1 F 11/18/17 08:48 Pulse 80 11/18/17 12:53 Resp 18 11/18/17 08:48 BP 113/60 11/18/17 12:53 Pulse Ox 98 11/18/17 08:48 - Labs Result Diagrams: 11/18/17 05:50 11/18/17 05:50 Labs: Laboratory Results - last 24 hr 11/18/17 11/18/17 05:50 05:50 WBC 4.7 D RBC 2.88 L Hgb 9.0 L Hct 27.9 L MCV 96.9 MCH 31.3 MCHC 32.3 RDW 15.0 H Plt Count 146 MPV 9.4 Sodium 142 Potassium 4.2 Chloride 110 H Carbon Dioxide 28 Anion Gap 8 L BUN 19 Creatinine 0.6 L Est GFR ( Amer) > 60 Est GFR (Non-Af Amer) > 60 Random Glucose 83 Calcium 8.2 L Magnesium 1.9 Total Bilirubin 0.4 AST 36 ALT 33 Alkaline Phosphatase 49 Total Protein 4.7 L Albumin 2.3 L Globulin 2.4 Albumin/Globulin Ratio 0.9 L Assessment & Plan - Assessment and Plan (Free Text) Assessment: 77 year old female with an infected port a cath. Plan: -O.R. tentatively scheduled for tomorrow for removal of port cath. -IV antibiotics -Medical management per Primary care team Will discuss with Dr. Springer. <Hiwot Fournier - Last Filed: 11/18/17 15:30> History of Present Illness - History of Present Illness History of Present Illness: Surgery consult Pt was dx w R breast CA and had mastectomy on 2002. She also had the port since then. Last chemo was a few weeks ago. Denies redness, pain, swelling on the port site, bleeding, discharge. Blood cx was + for Gram + cocci. Meds - Medications Medications: Current Medications Acetaminophen (Tylenol 325mg Tab) 650 mg PO Q6H PRN PRN Reason: Fever >100.4 F Apixaban (Eliquis) 5 mg PO DAILY [facility] PRN Reason: Protocol Last Admin: 11/18/17 12:53 Dose: 5 mg Carvedilol (Coreg) 12.5 mg PO DAILY [facility] Last Admin: 11/18/17 12:53 Dose: 12.5 mg Docusate Sodium (Colace) 100 mg PO DAILY [facility] Last Admin: 11/18/17 12:53 Dose: 100 mg Vancomycin HCl 1.5 gm/ Sodium (Chloride) 500 mls @ 167 mls/hr IVPB Q12H [facility] PRN Reason: Protocol Last Admin: 11/18/17 08:47 Dose: 167 mls/hr Levetiracetam (Keppra) 250 mg PO BID [facility] Last Admin: 11/18/17 12:53 Dose: 250 mg Ondansetron HCl (Zofran Inj) 4 mg IVP Q6H PRN PRN Reason: Nausea/Vomiting Pregabalin (Lyrica) 50 mg PO DAILY [facility] Last Admin: 11/18/17 12:53 Dose: 50 mg Physical Exam - Skin Additional comments: L chest has port. No signs of infection . No erythema, no swelling, non tender Results - Vital Signs Recent Vital Signs: Last Vital Signs Temp 98.7 F 11/18/17 15:04 Pulse 79 11/18/17 15:04 Resp 18 11/18/17 15:04 BP 115/58 L 11/18/17 15:04 Pulse Ox 100 11/18/17 15:04 - Labs Result Diagrams: 11/18/17 05:50 11/18/17 05:50 Labs: Laboratory Results - last 24 hr 11/18/17 11/18/17 05:50 05:50 WBC 4.7 D RBC 2.88 L Hgb 9.0 L Hct 27.9 L MCV 96.9 MCH 31.3 MCHC 32.3 RDW 15.0 H Plt Count 146 MPV 9.4 Sodium 142 Potassium 4.2 Chloride 110 H Carbon Dioxide 28 Anion Gap 8 L BUN 19 Creatinine 0.6 L Est GFR ( Amer) > 60 Est GFR (Non-Af Amer) > 60 Random Glucose 83 Calcium 8.2 L Magnesium 1.9 Total Bilirubin 0.4 AST 36 ALT 33 Alkaline Phosphatase 49 Total Protein 4.7 L Albumin 2.3 L Globulin 2.4 Albumin/Globulin Ratio 0.9 L Assessment & Plan - Assessment and Plan (Free Text) Assessment: BLood cx : G + C Plan: NPO after midnight for OR on Mon Dr. Springer <Daryn Springer - Last Filed: 11/21/17 11:19> Results - Vital Signs Recent Vital Signs: Last Vital Signs Temp 97 F L 11/20/17 14:45 Pulse 80 11/20/17 14:45 Resp 20 11/20/17 14:45 BP 109/83 11/20/17 14:45 Pulse Ox 98 11/20/17 14:45 - Labs Result Diagrams: 11/18/17 05:50 11/18/17 05:50 Assessment & Plan - Assessment and Plan (Free Text) Plan: Dx Infected PAC-Bacteremia Sonu Removal PAC This consult done under my direct supervision Hiram Springer MD FACS
[2017-11-18] MEDS: Sodium Chloride 0.9% 1,000 ML IV SCH (17:17)
--- NOTE | 2017-11-18 19:22 | US ---
PROCEDURE: Left upper extremity venous ultrasound HISTORY: Arm pain and swelling. Evaluate for deep venous thrombosis. PHYSICIAN(S): Jeremy Rodriguez MD. FINDINGS: The visualized leftinternal jugular vein is sonographically normal and compressible. No evidence of obstruction or thrombus is seen. The visualized segments of the left subclavian vein are patent with normal waveforms. No sonographic evidence of obstruction or thrombosis is seen. The visualized deep venous system of the proximal leftupper extremity is sonographically normal and compressible. IMPRESSION: 1. No sonographic evidence for deep venous thrombosis in the visualized segments of the left upper extremity.
--- NOTE | 2017-11-18 19:28 | CP.PCM.PN ---
Subjective - Date & Time of Evaluation Date of Evaluation: 11/18/17 Time of Evaluation: 12:50 - Subjective Subjective: No fevers, not in distress. Objective - Vital Signs/Intake and Output Vital Signs (last 24 hours): Temp Pulse Resp BP Pulse Ox 98.1 F 84 18 102/98 H 98 11/18/17 08:48 11/18/17 08:48 11/18/17 08:48 11/18/17 08:48 11/18/17 08:48 Intake and Output: 11/18/17 11/18/17 06:59 18:59 Intake Total 120 Balance 120 - Medications Medications: Current Medications Acetaminophen (Tylenol 325mg Tab) 650 mg PO Q6H PRN PRN Reason: Fever >100.4 F Apixaban (Eliquis) 5 mg PO DAILY [facility] PRN Reason: Protocol Last Admin: 11/17/17 09:01 Dose: 5 mg Carvedilol (Coreg) 12.5 mg PO DAILY [facility] Last Admin: 11/17/17 09:02 Dose: 12.5 mg Docusate Sodium (Colace) 100 mg PO DAILY [facility] Last Admin: 11/17/17 09:01 Dose: 100 mg Vancomycin HCl 1.5 gm/ Sodium (Chloride) 500 mls @ 167 mls/hr IVPB Q12H [facility] PRN Reason: Protocol Last Admin: 11/18/17 08:47 Dose: 167 mls/hr Levetiracetam (Keppra) 250 mg PO BID [facility] Last Admin: 11/17/17 17:02 Dose: 250 mg Ondansetron HCl (Zofran Inj) 4 mg IVP Q6H PRN PRN Reason: Nausea/Vomiting Pregabalin (Lyrica) 50 mg PO DAILY [facility] Last Admin: 11/17/17 09:01 Dose: 50 mg - Labs Labs: 11/18/17 05:50 11/18/17 05:50 PT 14.4 SECONDS (9.4-12.5) H 11/11/17 21:20 INR 1.26 (0.93-1.08) H 11/11/17 21:20 APTT 28.2 Seconds (25.1-36.5) 11/11/17 21:20 - Constitutional Appears: Chronically Ill - Head Exam Head Exam: NORMAL INSPECTION - ENT Exam ENT Exam: Mucous Membranes Moist - Neck Exam Neck Exam: absent: Meningismus - Respiratory Exam Respiratory Exam: Decreased Breath Sounds - Cardiovascular Exam Cardiovascular Exam: +S1, +S2 - GI/Abdominal Exam GI & Abdominal Exam: Soft. 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 Johnson
--- NOTE | 2017-11-18 19:58 | CARD ---
APPROVED REPORT EXAM: Two-dimensional and M-mode echocardiogram with Doppler and color Doppler. INDICATION Infection:Rule out subacute bacterial endocarditis 2D DIMENSIONS Left Atrium (2D)4.1 (1.6-4.0cm)IVSd1.1 (0.7-1.1cm) LVDd4.1 (3.9-5.9cm)PWd1.1 (0.7-1.1cm) LVDs2.8 (2.5-4.0cm)FS (%) 33.0 % LVEF (%)62.1 (>50%) M-Mode DIMENSIONS Aortic Root3.20 (2.2-3.7cm)Aortic Cusp Exc.1.80 (1.5-2.0cm) Aortic Valve AoV Peak Qjlznnop274.0cm/Nica Peak GR.9mmHg Mitral Valve MV E Jkppgtjl53.3cm/sMV A Zeteqccb47.1cm/sE/A ratio0.7 TDI Lateral E' Peak V6.14cm/sMedial E' Peak V8.87cm/sE/Lateral E'11.0 E/Medial E'7.6 Pulmonary Valve PV Peak Isjvywgj83.2cm/sPV Peak Grad.2mmHg Tricuspid Valve TR Peak Wrceoexy424js/sRAP VEFRDYIC02ujRtCV Peak Gr.21mmHg [id number] LEFT VENTRICLE The left ventricle is normal size. There is normal left ventricular wall thickness. The left ventricular function is normal. The left ventricular ejection fraction is within the normal range. There is normal LV segmental wall motion. Transmitral Doppler flow pattern is Grade I-abnormal relaxation pattern. RIGHT VENTRICLE The right ventricle is normal size. There is normal right ventricular wall thickness. The right ventricular systolic function is normal. ATRIA The left atrium size is normal. The right atrium size is normal. AORTIC VALVE The aortic valve is not well visualized. No aortic regurgitation is present. There is no aortic valvular stenosis. MITRAL VALVE The mitral valve is mildly thickened. There is no mitral valve regurgitation noted. There is no mitral valve stenosis. TRICUSPID VALVE The tricuspid valve is normal in structure. GREAT VESSELS The aortic root is normal in size. PERICARDIAL EFFUSION There is no pericardial effusion. <Conclusion> The left ventricle is normal size. There is normal left ventricular wall thickness. The left ventricular function is normal. The left ventricular ejection fraction is within the normal range. There is normal LV segmental wall motion. Transmitral Doppler flow pattern is Grade I-abnormal relaxation pattern. No vegitation seen
[2017-11-19] MEDS: Sodium Chloride 0.9% 1,000 ML IV SCH (06:14)
[2017-11-19 08:59] LABS: INR 1.8 (0.93-1.08); PROTHROMBIN TIME 20.9 SECONDS (9.4-12.5)
[2017-11-19 09:07] LABS: PARTIAL THROMBOPLASTIN TIME 34.9 Seconds (25.1-36.5)
[2017-11-19] MEDS: Vancomycin 1.5 GM in Sodium Chloride 0.9% 500 ML IVPB SCH ×2 (09:14→22:23)
[2017-11-19] MEDS ORDERED: Bupivacaine 0.5% Inj(30mL) ONE (15:02)
[2017-11-19] MEDS ORDERED: Midazolam 2 MG/2 ML VIAL ONE (15:10)
[2017-11-19] MEDS ORDERED: Propofol 10 mg/ml Inj (20 ML) ONE (15:10)
[2017-11-19] MEDS ORDERED: Lidocaine 2% Inj (20ml) ONE (15:11)
--- NOTE | 2017-11-19 15:58 | PCM.SURG1 ---
Surgeon's Initial Post Op Note - Surgeon's Notes Surgeon: Dr. Springer Measurement And Sensing Technician: Sander PGY1 Type of Anesthesia: IV Sedation, Local Anesthesia Administered By: Dr. Fournier Pre-Operative Diagnosis: Bacteremia. Infected port-a-cath Operative Findings: see operative report Post-Operative Diagnosis: same Operation Performed: Removal of infected left port-a-cath Specimen/Specimens Removed: Wound Culture: Port pocket. Wound Culture: Catheter lumen Estimated Blood Loss: EBL {In ML}: 5 Blood Products Given: N/A Drains Used: No Drains Post-Op Condition: Good Date of Surgery/Procedure: 11/19/17 Time of Surgery/Procedure: 15:58
[2017-11-19] MEDS ORDERED: Lactated Ringer's 1,000 ML IV SCH (16:00)
--- NOTE | 2017-11-19 16:39 | CP.PCM.PN ---
Subjective - Date & Time of Evaluation Date of Evaluation: 11/19/17 Time of Evaluation: 12:40 - Subjective Subjective: No fevers, not in distress, afebrile, comfortable in bed, for removal of port today. Objective - Vital Signs/Intake and Output Vital Signs (last 24 hours): Temp Pulse Resp BP Pulse Ox 98.2 F 77 18 117/62 99 11/19/17 08:28 11/19/17 09:17 11/19/17 08:28 11/19/17 09:17 11/19/17 08:28 Intake and Output: 11/19/17 11/19/17 06:59 18:59 Intake Total 480 Balance 480 - Medications Medications: Current Medications Acetaminophen (Tylenol 325mg Tab) 650 mg PO Q6H PRN PRN Reason: Fever >100.4 F Apixaban (Eliquis) 5 mg PO DAILY [facility] PRN Reason: Protocol Last Admin: 11/18/17 12:53 Dose: 5 mg Carvedilol (Coreg) 12.5 mg PO DAILY [facility] Last Admin: 11/19/17 09:17 Dose: 12.5 mg Docusate Sodium (Colace) 100 mg PO DAILY [facility] Last Admin: 11/19/17 09:16 Dose: 100 mg Vancomycin HCl 1.5 gm/ Sodium (Chloride) 500 mls @ 167 mls/hr IVPB Q12H [facility] PRN Reason: Protocol Last Admin: 11/19/17 09:14 Dose: 167 mls/hr Sodium Chloride (Sodium Chloride 0.9%) 1,000 mls @ 100 mls/hr IV .Q10H [facility] Last Admin: 11/19/17 06:14 Dose: 100 mls/hr Levetiracetam (Keppra) 250 mg PO BID [facility] Last Admin: 11/19/17 09:18 Dose: 250 mg Ondansetron HCl (Zofran Inj) 4 mg IVP Q6H PRN PRN Reason: Nausea/Vomiting Pregabalin (Lyrica) 50 mg PO DAILY [facility] Last Admin: 11/19/17 09:24 Dose: 50 mg - Labs Labs: 11/18/17 05:50 11/18/17 05:50 PT 20.9 SECONDS (9.4-12.5) H 11/19/17 08:30 INR 1.80 (0.93-1.08) H 11/19/17 08:30 APTT 34.9 Seconds (25.1-36.5) 11/19/17 08:30 - Constitutional Appears: Chronically Ill - Head Exam Head Exam: NORMAL INSPECTION - Neck Exam Neck Exam: absent: Meningismus - Respiratory Exam Respiratory Exam: Decreased Breath Sounds Additional comments: left anterior chest wall port in place - Cardiovascular Exam Cardiovascular Exam: +S1, +S2 - GI/Abdominal Exam GI & Abdominal Exam: Soft. 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 Johnson
--- NOTE | 2017-11-19 21:54 | PN ---
DATE: 11/19/2017 SUBJECTIVE: The patient is a 77-year-old, seen and examined. No nausea or vomiting, no diarrhea. PHYSICAL EXAMINATION VITAL SIGNS: She is afebrile, pulse 65, respiration 18, blood pressure 114/68. LUNGS: Bilateral fair airflow. No rhonchi or crackle. HEART: S1 and S2 audible. ABDOMEN: Soft, nontender. No rebound, no guarding. NEUROLOGICAL: She is awake, alert, oriented, communicative. Has generalized weakness. Has difficulty walking. LABORATORY DATA: WBC 4.7, hemoglobin 9, hematocrit 27.9, platelet of 146. PT 20.9, INR 1.8. Chemistry: Sodium 142, potassium 4.2, chloride 110, CO2 of 28, BUN 19, creatinine 0.6, blood sugar 84. Her 4 sets of blood cultures are positive for coag-negative Staph. ASSESSMENT: 1. Coagulase-negative Staphylococcus aureus, status post Port-A-Cath removal. 2. History of metastatic breast cancer. 3. Metastasis to the brain. 4. Generalized weakness and difficulty walking, and left arm sonogram is negative for blood clot. PLAN: The patient's Port-A-Cath has been removed. Currently, she is on vancomycin 1.5 g every 12. We will continue that. The patient needs antibiotic for at least 1 week. She has been declined for TCU. Social Service to make arrangement for the patient' subacute rehab to complete her course of antibiotic and to get more physical therapy. Cathy Johnson MD
[2017-11-20 08:29] VITALS: RESP 20
[2017-11-20] MEDS: Vancomycin 1.5 GM in Sodium Chloride 0.9% 500 ML IVPB SCH (09:46)
--- NOTE | 2017-11-20 10:27 | CP.PCM.PN ---
Subjective - Date & Time of Evaluation Date of Evaluation: 11/20/17 Time of Evaluation: 10:26 - Subjective Subjective: Patient seen and examined at bedside. Per nursing no acute events occurred overnight. Patient denies any fevers, chills, headache, nausea, vomiting, changes in vision, abdominal pain, syncopal episodes, or any other complaints. Objective - Vital Signs/Intake and Output Vital Signs (last 24 hours): Temp Pulse Resp BP Pulse Ox 98.8 F 86 20 120/66 97 11/20/17 08:28 11/20/17 09:47 11/20/17 08:28 11/20/17 09:47 11/20/17 08:28 Intake and Output: 11/20/17 11/20/17 06:59 18:59 Intake Total 560 Balance 560 - Medications Medications: Current Medications Acetaminophen (Tylenol 325mg Tab) 650 mg PO Q6H PRN PRN Reason: Fever >100.4 F Apixaban (Eliquis) 5 mg PO DAILY [facility] PRN Reason: Protocol Last Admin: 11/20/17 09:47 Dose: 5 mg Carvedilol (Coreg) 12.5 mg PO DAILY [facility] Last Admin: 11/20/17 09:47 Dose: 12.5 mg Docusate Sodium (Colace) 100 mg PO DAILY [facility] Last Admin: 11/20/17 09:47 Dose: 100 mg Vancomycin HCl 1.5 gm/ Sodium (Chloride) 500 mls @ 167 mls/hr IVPB Q12H [facility] PRN Reason: Protocol Last Admin: 11/20/17 09:46 Dose: 167 mls/hr Levetiracetam (Keppra) 250 mg PO BID [facility] Last Admin: 11/20/17 09:47 Dose: 250 mg Ondansetron HCl (Zofran Inj) 4 mg IVP Q6H PRN PRN Reason: Nausea/Vomiting Ondansetron HCl (Zofran Inj) 4 mg IVP ONCE PRN PRN Reason: Nausea/Vomiting Pregabalin (Lyrica) 50 mg PO DAILY [facility] Last Admin: 11/20/17 09:47 Dose: 50 mg Tramadol HCl (Ultram) 50 mg PO TID PRN PRN Reason: Pain, moderate (4-7) Last Admin: 11/19/17 17:23 Dose: 50 mg - Labs Labs: 11/18/17 05:50 11/18/17 05:50 PT 20.9 SECONDS (9.4-12.5) H 11/19/17 08:30 INR 1.80 (0.93-1.08) H 11/19/17 08:30 APTT 34.9 Seconds (25.1-36.5) 11/19/17 08:30 - Head Exam Head Exam: ATRAUMATIC, NORMAL INSPECTION - Eye Exam Eye Exam: EOMI - ENT Exam ENT Exam: Mucous Membranes Moist Assessment and Plan - Assessment and Plan (Free Text) Assessment: 77 year old female with an infected port a cath s/p removal of port cath POD#1 Plan: -Continue dressing changes. -Continue IV antibiotics per Infectious Disease. -
[2017-11-20] MEDS ORDERED: Vancomycin 1gm in NS 250ml 1 GM/250 ML BAG IVPB SCH (11:45)
[2017-11-20 14:46] VITALS: BP 109/83; PULSE 80; TEMP 97; O2SAT 98
--- NOTE | 2017-11-20 16:09 | CP.PCM.PN ---
Subjective - Date & Time of Evaluation Date of Evaluation: 11/20/17 Time of Evaluation: 13:00 - Subjective Subjective: Comfortable in bed, no fevers, not in distress, had port removed yesterday. Objective - Vital Signs/Intake and Output Vital Signs (last 24 hours): Temp Pulse Resp BP Pulse Ox 98.8 F 86 20 120/66 97 11/20/17 08:28 11/20/17 09:47 11/20/17 08:28 11/20/17 09:47 11/20/17 08:28 Intake and Output: 11/20/17 11/20/17 06:59 18:59 Intake Total 560 Balance 560 - Medications Medications: Current Medications Acetaminophen (Tylenol 325mg Tab) 650 mg PO Q6H PRN PRN Reason: Fever >100.4 F Apixaban (Eliquis) 5 mg PO DAILY [facility] PRN Reason: Protocol Last Admin: 11/20/17 09:47 Dose: 5 mg Carvedilol (Coreg) 12.5 mg PO DAILY [facility] Last Admin: 11/20/17 09:47 Dose: 12.5 mg Docusate Sodium (Colace) 100 mg PO DAILY [facility] Last Admin: 11/20/17 09:47 Dose: 100 mg Vancomycin HCl (Vancomycin 1gm) 1 gm in 250 mls @ 167 mls/hr IVPB Q12H [facility] PRN Reason: Protocol Stop: 11/27/17 11:46 Levetiracetam (Keppra) 250 mg PO BID [facility] Last Admin: 11/20/17 09:47 Dose: 250 mg Ondansetron HCl (Zofran Inj) 4 mg IVP Q6H [facility] PRN Reason: Nausea/Vomiting Ondansetron HCl (Zofran Inj) 4 mg IVP ONCE PRN PRN Reason: Nausea/Vomiting Pregabalin (Lyrica) 50 mg PO DAILY [facility] Last Admin: 11/20/17 09:47 Dose: 50 mg Tramadol HCl (Ultram) 50 mg PO TID PRN PRN Reason: Pain, moderate (4-7) Last Admin: 11/19/17 17:23 Dose: 50 mg - Labs Labs: 11/18/17 05:50 11/18/17 05:50 PT 20.9 SECONDS (9.4-12.5) H 11/19/17 08:30 INR 1.80 (0.93-1.08) H 11/19/17 08:30 APTT 34.9 Seconds (25.1-36.5) 11/19/17 08:30 - Constitutional Appears: Non-toxic, Chronically Ill - Head Exam Head Exam: NORMAL INSPECTION - ENT Exam ENT Exam: Mucous Membranes Moist - Neck Exam Neck Exam: absent: Meningismus - Respiratory Exam Respiratory Exam: Decreased Breath Sounds Additional comments: left anterior chest wall with dressings in place - Cardiovascular Exam Cardiovascular Exam: +S1, +S2 - GI/Abdominal Exam GI & Abdominal Exam: Soft. 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 Johnson previously
--- NOTE | 2017-11-21 16:33 | DS ---
HISTORY OF PRESENT ILLNESS: Patient is 77 years old seen and examined. She was initially admitted because of generalized weakness. She was unable to walk. Patient was recently discharged from [facility], but she was unable to get out of bed or stand up, so family brought her to emergency room. She had blood culture and urine culture done. Blood cultures were positive for coag-negative Staph. Patient has a Port-A-Cath for a couple of years. Her 2 blood culture were positive for coag-negative Staph and repeat cultures were also positive. So she end up having Port-A-Cath removed and she had midline placed in her left forearm. She is being transferred to [facility] today. PHYSICAL EXAMINATION: GENERAL: She is awake, alert, oriented, communicative. VITAL SIGNS: She is afebrile, pulse 80, respirations 20, blood pressure 109/83. LUNGS: Bilateral good airflow. No rhonchi or crackles. HEART: S1 and S2 audible. ABDOMEN: Soft, nontender. No rebound, no guarding. NEUROLOGICAL: Patient is awake and alert, oriented, communicative. Only has generalized weakness. ASSESSMENT: 1. Metastatic breast cancer. 2. Metastasis to the brain. 3. Bacteremia. 4. Status post Port-A-Cath removal. 5. Hypertension. 6. Deconditioning and difficulty walking. 7. Paroxysmal atrial fibrillation. PLAN: Patient is being discharged today to [facility] and she will be given vanco as recommended by ID. Patient will be given one week of vanco after Port-A-Cath removal and her repeat blood cultures are pending. Her repeat blood culture done on 11/19 is negative . So she will be followed by doctor in [facility]. Cathy Johnson MD
== END 2017-11-20 20:00 | DRG 314 ==
LOC: ED 20:04 → ERH 23:52 → MERGE 23:52 → ERH 11-12 01:54 → 5RSO 11-12 04:31 → OBSVTOIN 11-12 15:30
PROVIDERS: ADMIT Internal Medicine; ATTEND Internal Medicine
PROC: 0JPV3WZ Removal of Totally Implantable Vascular Access Device from Upper Extremity Subcutaneous Tissue and Fascia, Percutaneous Approach (ICD-10-PCS; principal; 2017-11-19 14:00)
PROC: 02HV33Z Insertion of Infusion Device into Superior Vena Cava, Percutaneous Approach (ICD-10-PCS; 2017-11-20)
PROC: B54NZZA Ultrasonography of Left Upper Extremity Veins, Guidance (ICD-10-PCS; 2017-11-20)
DX: T80.219A Unspecified infection due to central venous catheter, initial encounter (principal); A41.1 Sepsis due to other specified staphylococcus; C79.31 Secondary malignant neoplasm of brain; C79.51 Secondary malignant neoplasm of bone; I42.9 Cardiomyopathy, unspecified; I10 Essential (primary) hypertension; I25.10 Atherosclerotic heart disease of native coronary artery without angina pectoris; I48.0 Paroxysmal atrial fibrillation; M15.9 Polyosteoarthritis, unspecified; R26.2 Difficulty in walking, not elsewhere classified; R41.0 Disorientation, unspecified; Y83.8 Other surgical procedures as the cause of abnormal reaction of the patient, or of later complication, without mention of misadventure at the time of the procedure; Z85.3 Personal history of malignant neoplasm of breast; Z90.11 Acquired absence of right breast and nipple; Z98.2 Presence of cerebrospinal fluid drainage device; Z79.01 Long term (current) use of anticoagulants; Z88.0 Allergy status to penicillin; Z87.891 Personal history of nicotine dependence

== ENCOUNTER 2018-01-17 11:41 | Day surgery (SDC) | payer MEDICARE ==
[2018-01-15 11:22] VITALS: BMI 30.7
[2018-01-17 12:34] LABS: EOS % 0.1 % (1.5-5.0); GRAN # 5.84 (1.4-6.5); GRAN % 72.2 % (50.0-68.0); HEMOGLOBIN 10.7 g/dL (12.0-16.0); LYMPH # 1.5 (1.2-3.4); LYMPH % 17.9 % (22.0-35.0); MEAN CELL VOLUME 90.6 fl (80.0-105.0); MEAN CORPUSCULAR HEMOGLOBIN 29.7 pg (25.0-35.0); MEAN CORPUSCULAR HGB CONC 32.8 g/dl (31.0-37.0); MEAN PLATELET VOLUME 9.4 fl (7.0-11.0); MONO # 0.8 (0.1-0.6); MONO % 9.8 % (1.0-6.0); RBC 3.6 10^6/uL (3.5-6.1); RED CELL DISTRIBUTION WIDTH 14.6 % (11.5-14.5); WHITE BLOOD COUNT 8.1 10^3/ul (4.5-11.0)
[2018-01-17 12:42] LABS: BLOOD UREA NITROGEN 33 mg/dL (7-21); CALCIUM 9.7 mg/dL (8.4-10.5); GFR AFRICAN-AMERICAN > 60; GFR NON-AFRICAN AMERICAN > 60
[2018-01-17 12:46] LABS: INR 0.95 (0.93-1.08); PARTIAL THROMBOPLASTIN TIME 24.2 Seconds (25.1-36.5); PROTHROMBIN TIME 10.9 SECONDS (9.4-12.5)
[2018-01-17] MEDS ORDERED: Lidocaine 2% Inj (20ml) ONE (13:12)
[2018-01-17] MEDS ORDERED: Midazolam 2 MG/2 ML VIAL ONE ×2 (14:21→14:43)
[2018-01-17] MEDS ORDERED: Vancomycin 500 mg (Oral/Rectal USE) ONE (14:34)
[2018-01-17] MEDS ORDERED: Sodium Chloride 0.45% 1,000 ML IV SCH (15:30)
[2018-01-17 16:13] VITALS: BP 134/71; PULSE 57; RESP 18; TEMP 98.8; O2SAT 99
--- NOTE | 2018-01-17 17:52 | VASCULAR ---
PROCEDURE: Ultrasound and fluoroscopic right internal jugular venous access port. CLINICAL HISTORY: Metastatic breast carcinoma.Venous port for chemotherapy. PHYSICIAN(S): Jeremy Rodriguez M.D. TECHNIQUE: The relative risks and indications of the procedure were explained to the patient and consent obtained. The patient was placed supine on the arteriogram table and the right neck and chest prepped and draped in the usual sterile fashion. Conscious sedation monitoring was provided throughout the procedure by a nurse. Antibiotics were given prior to the procedure. Under direct ultrasound guidance, the right internal jugular vein was punctured with a micro-puncture set. A 0.035 angled Glidewire was advanced into the IVC. A 4 cm incision was made below the right clavicle and the pocket blunted dissected. A 8 Latvian single-lumen catheter, 20 cm long, was advanced to the SVC/RA junction. The catheter was trimmed and attached to the port. The port aspirates and injects easily. The port was placed in the pocket and closed in 2 layers. The patient tolerated the procedure well. IMPRESSION: Ultrasound and fluoroscopically placed right internal jugular venous access port.
== END 2018-01-17 16:40 | disposition home or self-care (01) ==
LOC: SDSVAS 11:41
PROVIDERS: ATTEND Radiology Vascular & Interventional Radiology
DX: C50.919 Malignant neoplasm of unspecified site of unspecified female breast (principal)
CPT/HCPCS: 36415; 36561; 76937; 77001; 80048; 85025; 85610; 85730; 99152; 99153; C1760; C1769; C1788; J1644; J2250; J2405; J3010; J7030

== ENCOUNTER 2018-03-02 19:07 | Inpatient (IN) | payer MEDICARE ==
[2018-03-02 19:45] VITALS: BMI 31.7
--- NOTE | 2018-03-02 20:08 | ED PDOC ---
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 Patient associates her symptom with decreased motor skills and movement over that past few weeks. Daughter states patient having subjective fever and notes patient has had recent treatment for underlying infection in the past. Daughter is concerned for possible recurrent infection. Patient denies vomiting, abdominal pain, diarrhea , chest pain, shortness of breath, or other complaints. Time/Duration: < week Symptom Onset: Gradual Symptom Course: Unchanged Activities at Onset: Rest Context: Home Past Medical History - Provider Review Nursing Documentation Reviewed: Yes - Cardiac Hx Hypertension: Yes - Pulmonary Hx Respiratory Disorders: No - Neurological Hx Paralysis: No (WEAKNESS) - HEENT Hx HEENT Disorder: No - Renal Hx Renal Disorder: No - Endocrine/Metabolic Hx Endocrine Disorders: No - Hematological/Oncological Hx Blood Transfusions: No Hx Blood Transfusion Reaction: No - Integumentary Hx Dermatological Disorder: No - Musculoskeletal/Rheumatological Hx Musculoskeletal Disorders: No - Gastrointestinal Hx Gastrointestinal Disorders: No - Genitourinary/Gynecological Hx Genitourinary Disorders: No - Psychiatric Hx Emotional Abuse: No Hx Physical Abuse: No Hx Substance Use: No - Surgical History Hx Mastectomy: Yes (Right) - Anesthesia Hx Anesthesia Reactions: No Hx Malignant Hyperthermia: No - Suicidal Assessment Feels Threatened In Home Enviroment: No Family/Social History - Physician Review Nursing Documentation Reviewed: Yes Family/Social History: Unknown Family HX Smoking Status: Never Smoked Hx Alcohol Use: No Hx Substance Use: No Allergies/Home Meds Allergies/Adverse Reactions: Allergies ANTHONY Inhibitors Allergy (Verified 03/02/18 19:45) SWELLING Penicillins Allergy (Verified 03/02/18 19:45) SWELLING Home Medications: Home Meds Medication Instructions Recorded Confirmed Apixaban [Eliquis] 5 mg PO DAILY 11/11/17 03/02/18 Carvedilol [Coreg] 12.5 mg PO DAILY 11/11/17 03/02/18 Dexamethasone [Decadron] 4 mg PO BID 11/11/17 03/02/18 Furosemide [Lasix] 20 mg PO DAILY 11/11/17 03/02/18 Pregabalin [Lyrica] 50 mg PO DAILY 11/11/17 03/02/18 Escitalopram [Lexapro] 10 mg PO DAILY 01/15/18 03/02/18 Levetiracetam [Keppra] 250 mg PO BID 01/15/18 03/02/18 Review of Systems - Review of Systems Constitutional: Fatigue (weakness ), Fevers Eyes: absent: Vision Changes ENT: absent: Sinus Congestion Respiratory: absent: SOB Cardiovascular: absent: Chest Pain Gastrointestinal: absent: Abdominal Pain, Vomiting Genitourinary Female: absent: Dysuria Musculoskeletal: absent: Back Pain Skin: absent: Rash Neurological: Other (decreased motor skills and movement). absent: Dizziness Endocrine: absent: Diaphoresis Physical Exam Vital Signs Reviewed: Yes Vital Signs Temp Pulse Resp BP Pulse Ox 03/02/18 19:42 98.4 F 91 H 18 153/63 H 100 Temperature: Afebrile Blood Pressure: Hypertensive Pulse: Tachycardic Respiratory Rate: Normal Appearance: Positive for: Well-Appearing, Non-Toxic, Comfortable Pain Distress: None Mental Status: Positive for: Alert and Oriented X 3 - Systems Exam Head: Present: Atraumatic, Normocephalic Pupils: Present: PERRL Extroacular Muscles: Present: EOMI Conjunctiva: Present: Normal Mouth: Present: Moist Mucous Membranes Neck: Present: Normal Range of Motion. No: MIDLINE TENDERNESS, Paraspinal Tenderness Respiratory/Chest: Present: Clear to Auscultation, Good Air Exchange. No: Respiratory Distress, Accessory Muscle Use, Wheezes, Decreased Breath Sounds, Rales, Rhonchi Cardiovascular: Present: Regular Rate and Rhythm, Normal S1, S2. No: Murmurs Abdomen: Present: Normal Bowel Sounds. No: Tenderness, Distention, Peritoneal Signs, Rebound, Guarding Upper Extremity: Present: Normal Inspection, Normal ROM, NORMAL PULSES, Neurovascularly Intact, Capillary Refill < 2s. No: Cyanosis, Edema, Tenderness , Swelling, Erythema, Deformity Lower Extremity: Present: Normal Inspection, NORMAL PULSES, Normal ROM, Neurovascularly Intact, Capillary Refill < 2 s. No: Edema, Cyanosis, Delfina's Sign, Tenderness, Swelling, Erythema, Deformity Neurological: Present: GCS=15, CN II-XII Intact, Speech Normal, Motor Func Grossly Intact, Normal Sensory Function Skin: Present: Warm, Dry, Normal Color. No: Rashes Psychiatric: Present: Alert, Oriented x 3, Normal Insight, Normal Concentration Medical Decision Making ED Course and Treatment: 03/02/18 Impression: 77 year old female complaining of fatigue and decreased motor skills and movement. Plan: -- CT head -- EKG -- Labs -- Chest X-ray -- Urinalysis -- Reassess and disposition Prior Visits: Notes and results from previous visits were reviewed. Progress Notes: Reviewed EKG, NSR at 85 bpm. PAC. Non-specific T wave changes. 03/02/18 22:34 Chest X-ray reviewed, shows right-sided infiltrate. 03/02/18 22:[address] Johnson, who is aware and agrees with plan. Accepts pt in to hospitalist. Pt will be admitted to [facility] for pneumonia. Requests Dr. James on consult. 03/02/18 23:16 CT Head shows: Brain: A vague hypodensity in the right cerebellar hemisphere, could represent acute to subacute infarct or edema related to an underlying mass. Minimal mass effect upon the fourth ventricle is present. Mild chronic white matter disease, likely microangiopathic. No hemorrhage. Ventricles: Right parietal approach ventriculostomy catheter tip overlies the frontal horn of the left lateral ventricle, unchanged. No hydrocephalus. A tiny cavum septum pellucidum, normal variant. Bones/joints: Right frontal and right parietal patrick holes. Dystrophic calcification beneath the right frontal patrick hole, probably within an old shunt tract. No acute fracture. Soft tissues: Unremarkable. Sinuses: Fluid, mucosal thickening is present in the left maxillary sinus and in the sphenoid sinuses. Mastoid air cells: Unremarkable as visualized. No mastoid effusion. IMPRESSION: 1. A vague hypodensity in the right cerebellar hemisphere, could represent acute to subacute infarct or edema related to an underlying mass. 2. Minimal mass effect upon the fourth ventricle is present. 3. Stable ventriculostomy catheter, no acute hydrocephalus. 4. Sinus disease. - Lab Interpretations Lab Results: 03/02/18 19:56 03/02/18 19:56 Lab Results 03/02/18 20:18: Urine Color Yellow, Urine Appearance Clear, Urine pH 6.0, Ur Specific Letcher 1.020, Urine Protein Negative, Urine Glucose (UA) Negative, Urine Ketones Negative, Urine Blood Negative, Urine Nitrate Negative, Urine Bilirubin Negative, Urine Urobilinogen 0.2, Ur Leukocyte Esterase Negative 03/02/18 19:56: pO2 88 H, VBG pH 7.38, VBG pCO2 41.0, VBG HCO3 24.3, VBG Total CO2 25.6, VBG O2 Sat (Calc) 98.4 H, VBG Base Excess -0.8 L, VBG Potassium 4.6, Sodium 136.0, Chloride 107.0, Glucose 139 H, Lactate 1.9, FiO2 21.0, Venous Blood Potassium 4.6 03/02/18 19:56: WBC 20.8 H D, RBC 2.87 L, Hgb 8.6 L D, Hct 26.5 L, MCV 92.3, MCH 30.0, MCHC 32.5, RDW 19.5 H, Plt Count 96 L, MPV 9.2 03/02/18 19:56: Sodium 136, Chloride 105, Potassium 4.7, Carbon Dioxide 25, Anion Gap 11, BUN 29 H, Creatinine 0.9, Est GFR ( Amer) > 60, Est GFR ( Non-Af Amer) > 60, Random Glucose 133 H, Calcium 8.9, Phosphorus 2.9, Magnesium 1.9, Total Bilirubin 0.6, AST 31, ALT 26, Alkaline Phosphatase 114, Lactate Dehydrogenase 1360 H, Total Creatine Kinase 26 L, Troponin I < 0.01, Total Protein 5.0 L, Albumin 2.6 L, Globulin 2.3, Albumin/Globulin Ratio 1.1 I have reviewed the lab results: Yes - RAD Interpretation Radiology Orders: 03/02/18 19:51 HEAD W/O CONTRAST [CT] Stat CHEST PORTABLE [RAD] Stat Insurance Loss Assessor: ED Physician, Radiologist - EKG Interpretation Interpreted by ED Physician: Yes Type: 12 lead EKG - Medication Orders Current Medication Orders: Levofloxacin/Dextrose (Levaquin 750mg) 750 mg in 150 mls @ 100 mls/hr IVPB STAT STA PRN Reason: Protocol Stop: 03/03/18 00:08 Last Admin: 03/02/18 23:10 Dose: 100 mls/hr eMAR Start Stop Document 03/02/18 23:10 RD (Rec: 03/02/18 23:11 RD [id number]) Intravenous Solution Start Date 03/02/18 Start Time 23:10 End Date 03/03/18 End time 00:40 Total Infusion Time 90 Vancomycin HCl (Vancomycin 1gm) 1 gm in 250 mls @ 167 mls/hr IVPB STAT STA PRN Reason: Protocol Stop: 03/03/18 00:17 - Scribe Statement The provider has reviewed the documentation as recorded by the Claus Morenoibe Attestation: Kathi Devlin Attestation: All medical record entries made by the Joshibera were at my direction and personally dictated by me. I have reviewed the chart and agree that the record accurately reflects my personal performance of the history, physical exam, medical decision making, and the department course for this patient. I have also personally directed, reviewed, and agree with the discharge instructions and disposition. Disposition/Present on Arrival - Present on Arrival Any Indicators Present on Arrival: No History of DVT/PE: No History of Uncontrolled Diabetes: No Urinary Catheter: No History of Decub. Ulcer: No History Surgical Site Infection Following: None - Disposition Have Diagnosis and Disposition been Completed?: Yes Diagnosis: Pneumonia, Leukocytosis Disposition: HOSPITALIZED Disposition Time: 23:04 Patient Plan: Admission Patient Problems: Current Active Problems Problem Status Onset Leukocytosis Acute Pneumonia Acute Condition: STABLE
[2018-03-02 20:18] LABS: VENOUS BLOOD GAS BASE EXCESS -0.8 mmol/L (0.0-2.0); VENOUS BLOOD GAS PO2 88 mm/Hg (30-55); VENOUS BLOOD PH 7.38 (7.32-7.43)
[2018-03-02 20:19] LABS: HEMOGLOBIN 8.6 g/dL (12.0-16.0); MEAN CELL VOLUME 92.3 fl (80.0-105.0); MEAN CORPUSCULAR HGB CONC 32.5 g/dl (31.0-37.0); MEAN PLATELET VOLUME 9.2 fl (7.0-11.0); RBC 2.87 10^6/uL (3.5-6.1); RED CELL DISTRIBUTION WIDTH 19.5 % (11.5-14.5); WHITE BLOOD COUNT 20.8 10^3/ul (4.5-11.0)
[2018-03-02 20:33] LABS: ALB/GLOB RATIO 1.1 (1.1-1.8); ALBUMIN 2.6 g/dL (3.0-4.8); ALT/SGPT 26 U/L (7-56); AST/SGOT 31 U/L (14-36); BLOOD UREA NITROGEN 29 mg/dL (7-21); CALCIUM 8.9 mg/dL (8.4-10.5); GFR AFRICAN-AMERICAN > 60; GFR NON-AFRICAN AMERICAN > 60
[2018-03-02 20:44] LABS: TROPONIN I < 0.01 ng/mL
[2018-03-02 20:50] LABS: URINE BILIRUBIN NEGATIVE (NEGATIVE); URINE BLOOD NEGATIVE (NEGATIVE); URINE GLUCOSE (UA) NEGATIVE (NEGATIVE); URINE LEUKOCYTE ESTERASE NEGATIVE Leu/uL (NEGATIVE); URINE PROTEIN NEGATIVE mg/dL (<30 mg/dL); URINE UROBILINOGEN 0.2 E.U./dL (<1 E.U./dL)
[2018-03-02 21:04] LABS: URINE APPEARANCE CLEAR (CLEAR); URINE COLOR YELLOW (YELLOW)
[2018-03-02] MEDS ORDERED: levoFLOXacin 750 mg in D5W 750 MG/150 ML BAG IVPB STA (22:39)
[2018-03-02] MEDS ORDERED: Vancomycin 1gm in NS 250ml 1 GM/250 ML BAG IVPB STA (22:48)
--- NOTE | 2018-03-03 08:37 | CT ---
Date of service: 03/02/2018 PROCEDURE: CT HEAD WITHOUT CONTRAST. HISTORY: weakness COMPARISON: 11/11/2017. TECHNIQUE: Axial computed tomography images were obtained through the head/brain without intravenous contrast. Coronal and sagittal reconstructed images. Radiation dose: Total exam DLP = 939.27. MGy-cm. This CT exam was performed using one or more of the following dose reduction techniques: Automated exposure control, adjustment of the mA and/or kV according to patient size, and/or use of iterative reconstruction technique. FINDINGS: HEMORRHAGE: No intracranial hemorrhage. BRAIN: No mass effect or edema. Low-attenuation area is right cerebellar hemisphere similar finding identified previously. Better visualization on the current study however. VENTRICLES: Ventriculostomy catheter identified tip is in the lateral ventricles midline. There is no interval change. CALVARIUM: Unremarkable. PARANASAL SINUSES: Air-fluid level left maxillary sinus consistent with acute sinusitis. Chronic sphenoid air cell disease. Chronic SENIA MASTOID AIR CELLS: Unremarkable as visualized. No inflammatory changes. OTHER FINDINGS: None. IMPRESSION: Vague area diminished attenuation right cerebellar hemisphere. Follow-up recommended. Stable position of ventriculostomy catheter.
[2018-03-03] MEDS: Meropenem IV 1 gm in NS 50 ML IVPB SCH ×3 (09:32→22:04)
[2018-03-03] MEDS: Vancomycin 1gm in NS 250ml 1 GM/250 ML BAG IVPB SCH ×2 (09:33→18:37)
--- NOTE | 2018-03-03 10:42 | RAD ---
Date of service: 03/02/2018 HISTORY: Weakness COMPARISON: 11/11/2017. FINDINGS: LUNGS: Progressive infiltrates/volume loss right titus thorax. PLEURA: No significant pleural effusion identified, no pneumothorax apparent. CARDIOVASCULAR: No radiographic findings to suggest acute or significant cardiovascular disease. Venous access catheter inserted right-sided approach has replaced the left-sided venous access catheter. OSSEOUS STRUCTURES: No significant abnormalities. VISUALIZED UPPER ABDOMEN: Normal. 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 IMPRESSION: Progressive consolidative changes/volume loss right lung.
--- NOTE | 2018-03-03 12:56 | CARD ---
APPROVED REPORT Date of service: 03/02/2018 EKG Measurement Heart [id number] <Conclusion> Sinus rhythm with premature atrial complexes Nonspecific T wave abnormality Abnormal ECG
--- NOTE | 2018-03-03 14:08 | CON ---
Copied To: Lucio Camp MD Attending MD: Lucio Camp MD DATE: 03/03/2018 CHIEF COMPLAINT: History of metastasis to the brain. I was consulted for generalized weakness. 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 Her CAT scan of the head showed intact ventriculostomy catheter tip and the lateral ventricle was midline, no interval change, has a vague diminished attenuation of the right cerebellar hemisphere which will possibly need to be followed up with an MRI of the brain with contrast to assess for any mets. Currently, the patient is stable. ALLERGIES: ALLERGIC TO ANTHONY INHIBITORS AND PENICILLIN. REVIEW OF SYSTEMS: Fourteen-point review of systems negative except as per the HPI. MEDICATIONS: Reviewed by nurse per reconciliation sheet. PAST MEDICAL HISTORY: As above. SOCIAL HISTORY: No illicit drug use, smoking or EtOH abuse. FAMILY HISTORY: Noncontributory. LABORATORY DATA: Sodium is 136, potassium 4.7, chloride 105, carbon dioxide 25, BUN of 29, creatinine of 0.9, random glucose 133. PHYSICAL EXAMINATION: VITAL SIGNS: Temperature 98.3, pulse rate 89, blood pressure 107/62, respiratory rate 20, oxygen saturation 98% via room air. GENERAL: The patient is sitting up in bed, in no acute distress. HEENT: Atraumatic, normocephalic. PERRLA. Extraocular muscles intact. NECK: Supple. No JVD. No adenopathy noted. LUNGS: Clear to auscultation. No adventitious sounds. HEART: S1, S2. Normal rate and rhythm. No murmurs, rubs or gallops. ABDOMEN: Soft, nontender and nondistended. Bowel sounds are present. EXTREMITIES: No clubbing. No cyanosis. Peripheral pulses 2+ felt bilaterally. Has some mild trace pedal edema in the lower extremities. NEUROLOGIC: The patient is alert and oriented to person, place, month and year. Speech is fluent without any errors. Cranial nerves II through XII intact. Motor exam, moves all extremities equally. No pronator drift seen. Sensory exam: Decreased light touch, pinprick up to the calves bilaterally. Decreased vibration of the toes. DTRs are 2+ throughout except for 1 at both knees and absent at ankles. Coordination: There is dysmetria on [id number] on the right when compared to the left. Toes are upgoing bilaterally. Gait is deferred for now. ASSESSMENT AND PLAN: This is a 77-year-old woman with history of hypertension, history of right breast cancer, status post right mastectomy. History of metastasis to the brain, on chemotherapy with a ventriculoperitoneal shunt, who came in for generalized weakness, decreased motor skill and generalized malaise for the past few weeks. I was called to evaluate. A CT of the head showed stable ventriculoperitoneal shunt in place and a vague hypattenuation and density in the right cerebellar hemisphere which will need to be evaluated with an MRI of the brain with contrast to assess for any further metastasis. She is clinically stable at this point and she is deconditioned. RECOMMENDATIONS: 1. Monitor her electrolytes currently closely. 2. IV hydration. 3. MRA of the brain with and without contrast to assess for any further mets. 4. PT/OT evaluation. 5. Follow up with Oncology recommendations and continue with current present medical management . Thank you for this consult. Lucio Camp MD
--- NOTE | 2018-03-03 15:51 | CP.PCM.CON ---
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 The patient is currently awake, feels weak but answers questions. She denies fever or chills, no cough, no SOB, no rhinorrhea, no sore throat, no headache or dizziness, no chest pain, no nausea or vomiting, no diarrhea, no dysuria. CXR done is showing right lower lobe infiltrate and Infectious Diseases consult is requested to further evaluate and manage. Review of Systems - Review of Systems All systems: reviewed and no additional remarkable complaints except (as per HPI ) Past Patient History - Past Social History Smoking Status: Never Smoked - CARDIAC Hx Cardiac Disorders: Yes Hx Hypertension: Yes - PULMONARY Hx Respiratory Disorders: Yes Hx Pneumonia: Yes - NEUROLOGICAL Hx Neurological Disorder: Yes Other/Comment: BRAIN TUMOR, VENTRICULAR SHUNT - HEENT Hx HEENT Problems: No - RENAL Hx Chronic Kidney Disease: No - ENDOCRINE/METABOLIC Hx Endocrine Disorders: No - HEMATOLOGICAL/ONCOLOGICAL Hx Blood Disorders: Yes Hx Cancer: Yes - INTEGUMENTARY Hx Dermatological Problems: No - MUSCULOSKELETAL/RHEUMATOLOGICAL Hx Musculoskeletal Disorders: Yes Hx Falls: Yes - GASTROINTESTINAL Hx Gastrointestinal Disorders: No - GENITOURINARY/GYNECOLOGICAL Hx Genitourinary Disorders: No - PSYCHIATRIC Hx Psychophysiologic Disorder: No - SURGICAL HISTORY Hx Surgeries: Yes Hx Mastectomy: Yes (Right) - ANESTHESIA Hx Anesthesia Reactions: No Hx Malignant Hyperthermia: No Meds Allergies/Adverse Reactions: Allergies Allergy/AdvReac Type Severity Reaction Status Date / Time ANTHONY Inhibitors Allergy SWELLING Verified 03/02/18 19:45 Penicillins Allergy SWELLING Verified 03/02/18 19:45 Physical Exam - Constitutional Appears: No Acute Distress, Chronically Ill - Head Exam Head Exam: NORMAL INSPECTION - ENT Exam ENT Exam: Mucous Membranes Moist - Neck Exam Neck exam: Negative for: Meningismus - Respiratory Exam Respiratory Exam: Decreased Breath Sounds - Cardiovascular Exam Cardiovascular Exam: +S1, +S2 - GI/Abdominal Exam GI & Abdominal Exam: Soft. absent: Tenderness Results - Vital Signs Recent Vital Signs: Last Vital Signs Temp 98.4 F 03/03/18 00:30 Pulse 86 03/03/18 01:13 Resp 18 03/03/18 01:13 BP 110/61 03/03/18 01:01 Pulse Ox 100 03/03/18 01:13 - Labs Result Diagrams: 03/02/18 19:56 03/02/18 19:56 Assessment & Plan - Assessment and Plan (Free Text) Plan: Assessment Sepsis due to right lower lobe healthcare-associated pneumonia with possible gram positive cocci and/or gram negative bacilli and/or atypical organisms history of sepsis from coagulase negative staph bacteremia, consider due to the port, S/P port removal breast cancer with CRA OFFICER metastases S/P WOOD PATTERNMAKER shunt placement CAD Plan started Vancomycin, Merrem and Doxycycline pending blood cx, urine Legionella Ag , PCT overall prognosis is poor will monitor clinically
--- NOTE | 2018-03-03 17:43 | CT ---
Date of service: 03/03/2018 PROCEDURE: CT Chest without contrast HISTORY: SOB/?PNEUMONIA COMPARISON: 11/12/2017. CT thorax March 02, 2018. Chest x-ray TECHNIQUE: Contiguous axial images were obtained through the chest without intravenous contrast enhancement. Sagittal and coronal reconstructions were performed. Radiation dose (DLP): mGy-cm. This CT exam was performed using one or more of the following dose reduction techniques: Automated exposure control, adjustment of the mA and/or kV according to patient size, and/or use of iterative reconstruction technique. FINDINGS: LUNGS: Faint right upper lobe infiltrate is approximately stable. Right lower lobe compressive atelectasis. Large chest wall mass compresses the right middle lobe. MEDIASTINUM: Unremarkable thoracic aorta. No aneurysm. Normal sized heart. Main pulmonary artery unremarkable. No vascular congestion. No lymphadenopathy. PLEURA: Increase in right pleural effusion. BONES: No fracture. No destructive lesion. UPPER ABDOMEN: Grossly unremarkable. OTHER FINDINGS: Interval increase in size of chest wall mass destroying multiple anterior ribs seen extending to the skin surface. The mass now measures 5.8 x 9.7 cm. 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 Venous access catheter in stable, satisfactory position. IMPRESSION: Interval increase in size of chest wall mass on the right. Increase in right pleural effusion with compressive atelectasis right lower lobe. Faint right upper lobe infiltrate similar to that seen previously.
--- NOTE | 2018-03-03 21:19 | HP ---
Copied To: Cathy Johnson MD Attending MD: Cathy Johnson MD HISTORY OF PRESENT ILLNESS: The patient is a 77-year-old black female, known to me from multiple previous admissions. According to daughter who is by the bedside that the patient was admitted in [facility] from Saturday to Saturday where she was diagnosed with pneumonia. She was given intravenous antibiotic and sent home with p.o. Levaquin that she bought over the weekend. Yesterday, daughter states she did not look well. She has not been walking. She lost appetite, so she brought her to emergency room for further evaluation. She denies any hemoptysis. No hematemesis. Does have decreased appetite. No abdominal pain, no constipation. PAST MEDICAL HISTORY: Significant for: 1. CA breast, status post right mastectomy. 2. History of bacteremia and she has left chest Port-A-Cath removed. 3. CA breast with brain metastasis. 4. 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 5. History of hypertension. ALLERGIES: SHE IS ALLERGIC TO ANTHONY INHIBITORS AND PENICILLIN. MEDICATIONS AT HOME: The patient is on Lyrica 50 mg daily, Keppra 250 twice a day, Lasix 20 mg daily, Lexapro 10 mg daily, Decadron 4 mg twice a day, Coreg 12.5 daily, Eliquis 5 mg daily. SOCIAL HISTORY: She lives with her daughter. Denies smoking, drinking or alcohol use. REVIEW OF SYSTEMS: Significant for generalized weakness, mild shortness of breath, difficulty walking. PHYSICAL EXAMINATION VITAL SIGNS: She is afebrile, pulse 89, respiration 20, blood pressure 107/62. LUNGS: Bilateral fair airflow. Decreased at right base. HEART: S1 and S2 audible. ABDOMEN: Soft, obese, nontender. No rebound, no guarding. NEUROLOGIC: The patient is awake, alert, oriented, communicative. EXTREMITIES: Bilateral legs, no edema. LABORATORY DATA: WBC 20.8, hemoglobin 8.6, hematocrit 26.5, platelet of 96. Chemistry: Sodium 136, potassium 4.2, chloride 105, CO2 of 25, BUN 29, creatinine 0.9, blood sugar 133. LFTs are within normal limits. LDH is 1360. Troponin is 0.01. Urinalysis is unremarkable. CT scan of the head shows status post HOUSEKEEPING LAUNDRY WORKER shunt and in the right cerebral hemisphere. X-ray chest, progressive consolidative changes and volume loss in the right lung area. ASSESSMENT: 1. Right lower lobe infiltrate with a history of metastatic breast cancer. 2. Cancer breast with brain metastasis ventriculoperitoneal shunt. 3. Hypertension. 4. Seizure disorder. 5. History of depression. PLAN: We will restart the patient on current medication. THE PATIENT IS ALLERGIC TO PENICILLIN, was given dose of vancomycin and that has been maintained by Dr. Watts and also has been started on doxycycline. We will order for CT scan of the chest. We will request for physical therapy evaluation. Dr. Dinh and Dr. James has been requested. Followup her blood cultures, followup her CBC and followup her CT scan of the chest. Cathy Johnson MD
[2018-03-04] MEDS: Meropenem IV 1 gm in NS 50 ML IVPB SCH ×3 (05:03→21:19)
[2018-03-04] MEDS: Vancomycin 1gm in NS 250ml 1 GM/250 ML BAG IVPB SCH ×2 (05:45→17:50)
[2018-03-04] MEDS ORDERED: Gadodiamide 287 MG/ML VIAL (20ML) IV ONE (09:21)
--- NOTE | 2018-03-04 10:15 | MRI ---
Date of service: 03/04/2018 PROCEDURE: MRI BRAIN WITH AND WITHOUT CONTRAST HISTORY: history of breast cancr with mets to brain?/ COMPARISON: CT 03/02/2018 TECHNIQUE: Multiplanar, multisequence MR images of the brain were obtained with and without intravenous contrast enhancement. 15 cc of Omniscan FINDINGS: HEMORRHAGE: None DWI: No evidence of an acute or early subacute infarction. BRAIN PARENCHYMA: There is an enhancing mass in the right cerebellar hemisphere near the midline. This 25 mm AP x 21 mm wide by 18 mm in height. There is surrounding vasogenic edema. Findings are consistent with metastatic disease. ENHANCEMENT: No abnormal intracranial enhancement. VENTRICLES: There is a right parietal shunt catheter. There is a previous shunt tract in the right frontal lobe CRANIUM: Unremarkable. ORBITS: Grossly unremarkable. PARANASAL SINUSES/MASTOIDS: Clear VASCULAR SYSTEM: Skull base flow voids intact. OTHER FINDINGS: None . IMPRESSION: There is an enhancing mass in the right cerebellar hemisphere near the midline. This 25 mm AP x 21 mm wide by 18 mm in height. There is surrounding vasogenic edema. Findings are consistent with metastatic disease.
--- NOTE | 2018-03-04 14:09 | PN ---
Copied To: Cathy Johnson MD Attending MD: Cathy Johnson MD DATE: 03/04/2018 SUBJECTIVE: The patient is 77-year-old, seen and examined, complained of generalized weakness. Eating fair. According to nurse, she ate 50% of her tray. No nausea, vomiting or diarrhea. Has generalized weakness. PHYSICAL EXAMINATION: VITAL SIGNS: She is afebrile. Pulse 87, respirations 16, blood pressure 117/70. LUNGS: Bilateral good airflow. No rhonchi or crackle. HEART: S1, S2 audible. ABDOMEN: Soft, nontender. No rebound, no guarding. NEUROLOGIC: She is awake, alert and oriented. Able to communicate. EXTREMITIES: Bilateral legs, +1 edema. LABORATORY DATA: Procalcitonin 0.35. Urinalysis is unremarkable. Blood cultures are negative. Urine shows Gram positive cocci. CT scan of the chest was done that shows right chest wall mass eroding into the ribs and increase in the right pleural effusion with compressive atelectasis in the right lower lobe. ASSESSMENT AND PLAN: 1. Status post Klebsiella bacteremia while she was in [facility]. 2. Status post right breast mastectomy. 3. Cerebellar hemorrhage of the right. 4. Seizure disorder. 5. Hypertension. 6. History of deep venous thrombosis. PLAN: Patient is currently on doxycycline. She is getting meropenem, is on vancomycin. I will talk to Dr. Watts. Procalcitonin is negative. Patient is afebrile with normal white count with leukocytosis. So plan is I will order for CBC, CMP in the morning and continue antibiotics. We will request physical therapy evaluation and make the ensuing plan according to Therapy report. According to daughter, mom does not want to go to subacute rehab. She will prefer not to go to TCU or home with home therapy. We will reevaluate the patient in the morning and I will discuss with her . Cathy Johnson MD
[2018-03-04 15:32] LABS: HEMOGLOBIN 8.5 g/dL (12.0-16.0); MEAN CELL VOLUME 92.9 fl (80.0-105.0); MEAN CORPUSCULAR HEMOGLOBIN 30.2 pg (25.0-35.0); MEAN CORPUSCULAR HGB CONC 32.6 g/dl (31.0-37.0); MEAN PLATELET VOLUME 9.9 fl (7.0-11.0); RBC 2.81 10^6/uL (3.5-6.1); RED CELL DISTRIBUTION WIDTH 19.6 % (11.5-14.5); WHITE BLOOD COUNT 24.1 10^3/ul (4.5-11.0)
[2018-03-04 15:37] LABS: ALB/GLOB RATIO 1.1 (1.1-1.8); ALBUMIN 2.7 g/dL (3.0-4.8); ALT/SGPT 26 U/L (7-56); AST/SGOT 32 U/L (14-36); BLOOD UREA NITROGEN 25 mg/dL (7-21); CALCIUM 8.9 mg/dL (8.4-10.5); GFR AFRICAN-AMERICAN > 60; GFR NON-AFRICAN AMERICAN > 60
--- NOTE | 2018-03-04 15:39 | CP.PCM.PN ---
Subjective - Date & Time of Evaluation Date of Evaluation: 03/04/18 Time of Evaluation: 11:10 - Subjective Subjective: No fevers, breathing a little better, a little more awake. Objective - Vital Signs/Intake and Output Vital Signs (last 24 hours): Temp Pulse Resp BP Pulse Ox 98.3 F 89 20 118/68 98 03/03/18 08:11 03/03/18 08:11 03/03/18 08:11 03/03/18 12:32 03/03/18 08:11 - Medications Medications: Current Medications Apixaban (Eliquis) 5 mg PO BID [facility] PRN Reason: Protocol Carvedilol (Coreg) 12.5 mg PO DAILY [facility] Last Admin: 03/03/18 12:32 Dose: 12.5 mg Dexamethasone (Decadron) 4 mg PO BID [facility] Doxycycline Hyclate (Doryx) 100 mg PO Q12 [facility] PRN Reason: Protocol Last Admin: 03/03/18 09:32 Dose: 100 mg Escitalopram Oxalate (Lexapro) 10 mg PO DAILY [facility] Last Admin: 03/03/18 12:32 Dose: 10 mg Furosemide (Lasix) 20 mg PO DAILY [facility] Last Admin: 03/03/18 12:32 Dose: 20 mg Meropenem (Merrem Iv 1 Gm Premix) 50 mls @ 100 mls/hr IVPB Q8 [facility] PRN Reason: Protocol Last Admin: 03/03/18 14:20 Dose: 100 mls/hr Vancomycin HCl (Vancomycin 1gm) 1 gm in 250 mls @ 167 mls/hr IVPB Q12H [facility] PRN Reason: Protocol Last Admin: 03/03/18 09:33 Dose: 167 mls/hr Levetiracetam (Keppra) 250 mg PO BID [facility] Last Admin: 03/03/18 12:32 Dose: 250 mg Pregabalin (Lyrica) 50 mg PO DAILY [facility] Last Admin: 03/03/18 12:32 Dose: 50 mg - Constitutional Appears: Chronically Ill - Head Exam Head Exam: NORMAL INSPECTION - Respiratory Exam Respiratory Exam: Decreased Breath Sounds - Cardiovascular Exam Cardiovascular Exam: +S1, +S2 - GI/Abdominal Exam GI & Abdominal Exam: Soft. absent: Tenderness Assessment and Plan - Assessment and Plan (Free Text) Plan: Assessment Sepsis due to right lower lobe healthcare-associated pneumonia with possible gram positive cocci and/or gram negative bacilli and/or atypical organisms history of sepsis from coagulase negative staph bacteremia, consider due to the port, S/P port removal breast cancer with FOREPART LASTER metastases S/P LECTURER IN MARKETING shunt placement CAD Plan continue Vancomycin, Merrem and Doxycycline day 2 pending final blood cx results ; PCT is 0.35 overall prognosis is poor will continue to monitor clinically
--- NOTE | 2018-03-04 18:19 | PN ---
Copied To: Lucio Camp MD Attending MD: Lucio Camp MD DATE: 03/04/2018 NEUROLOGY FOLLOWUP CHIEF COMPLAINT: Followup for possible brain mets. SUBJECTIVE: The patient is seen and examined on the bedside. She has some generalized weakness. She had an MRI of the brain, which did show evidence of an enhancing mass in the right cerebellar hemisphere near the midline with some mild surrounding vasogenic edema consistent with metastatic disease, which is also consistent with neurological exam for right-sided dysmetria. She is also status post bacteremia when she was in [facility] She is currently on Decadron for the vasogenic edema and low-dose Keppra 250 p.o. b.i.d. for seizure prophylaxis and waiting an Oncology followup. PAST MEDICAL HISTORY: History of breast cancer, status post right mastectomy and metastasis to the brain, on chemotherapy with BODY BUILDER APPRENTICE shunt. REVIEW OF SYSTEMS: Fourteen-point review of systems is negative except as per the HPI. FAMILY HISTORY: Noncontributory. SOCIAL HISTORY: No illicit drug use, smoking or EtOH abuse at this time. LABORATORY DATA: Sodium is 137, potassium is 4.5, chloride 104, carbon dioxide 26, BUN of 25, creatinine 0.8, random glucose 183. PHYSICAL EXAMINATION: VITAL SIGNS: Reviewed. Temperature is 98.2, pulse rate of 77, blood pressure 132/72, respiratory rate of 18, oxygen saturation 99% by room air. GENERAL: The patient is sitting up in bed, in no acute distress. HEENT: Atraumatic, normocephalic. PERRLA. Extraocular muscles intact. NECK: Supple. No JVD, no adenopathy noted. LUNGS: Clear to auscultation. No adventitious sounds. HEART: S1, S2. Normal rate and rhythm. No murmurs, rubs or gallops. ABDOMEN: Soft, nontender and nondistended. Bowel sounds are present. EXTREMITIES: No clubbing. No cyanosis. Peripheral pulses 2+ felt bilaterally. Some trace pedal edema of lower extremities. NEUROLOGIC: The patient is alert and oriented to person, place, month and year. Speech is fluent without any errors. Poor attention span. Slow thought process. Cranial nerves II through XII are intact. Motor exam: Moves all extremities equally. No pronator drift seen. Sensory exam: Decreased light touch and pinprick up to the calves bilaterally. Decreased vibration of the toes. DTRs are 2+ throughout except for 1 at both knees and absent at the ankles. Coordination: [id number], right-sided dysmetria when compared to the left. Toes upgoing bilaterally. Gait is deferred for now. ASSESSMENT AND PLAN: This is a 77-year-old woman with past medical history of hypertension; history of right breast cancer, status post right mastectomy, history of metastasis to the brain, on chemotherapy, ventriculoperitoneal shunt. Came for generalized weakness, decreased motor skill and generalized malaise and is found to have on neuro examination right [id number] dysmetria, which is consistent with her right cerebellar metastatic mass with some vasogenic edema. At this time, recommend, 1. Monitor electrolytes and correct accordingly. 2. Oncology and Radiation Oncology recommendations. 3. Continue with Decadron for now for vasogenic edema as well as headache. 4. Low-dose Keppra 250 p.o. b.i.d. for seizure prophylaxis and continue with present management with the Oncology and primary team. Thank you for this followup. Lucio Camp MD
[2018-03-05] MEDS: Meropenem IV 1 gm in NS 50 ML IVPB SCH ×2 (05:21→14:25)
[2018-03-05] MEDS: Vancomycin 1gm in NS 250ml 1 GM/250 ML BAG IVPB SCH (05:47)
[2018-03-05 06:21] LABS: BASO # 0.04 K/mm3 (0.0-2.0); BASO % 0.2 % (0.0-3.0); GRAN # 24.74 (1.4-6.5); HEMOGLOBIN 8.3 g/dL (12.0-16.0); LYMPH # 0.9 (1.2-3.4); LYMPH % 3.3 % (22.0-35.0); MEAN CORPUSCULAR HEMOGLOBIN 30.5 pg (25.0-35.0); MEAN CORPUSCULAR HGB CONC 32.8 g/dl (31.0-37.0); MEAN PLATELET VOLUME 9.8 fl (7.0-11.0); MONO # 0.7 (0.1-0.6); MONO % 2.5 % (1.0-6.0); PLATELET COUNT 144 10^3/uL (120.0-450.0); RBC 2.72 10^6/uL (3.5-6.1); RED CELL DISTRIBUTION WIDTH 19.7 % (11.5-14.5)
[2018-03-05 06:41] LABS: ALBUMIN 2.6 g/dL (3.0-4.8); ALT/SGPT 27 U/L (7-56); AST/SGOT 32 U/L (14-36); BLOOD UREA NITROGEN 26 mg/dL (7-21); CALCIUM 8.4 mg/dL (8.4-10.5); GFR AFRICAN-AMERICAN > 60; GFR NON-AFRICAN AMERICAN > 60
[2018-03-05 06:46] LABS: WHITE BLOOD COUNT 26.3 10^3/ul (4.5-11.0)
[2018-03-05 07:05] VITALS: RESP 20
[2018-03-05 08:06] LABS: BAND 7 % (0-2); LYMPHOCYTE 2 % (22.0-35.0); NEUTROPHIL 91 % (50.0-70.0); NUCLEATED RED BLOOD CELL 1 %; PLATELET ESTIMATE NORMAL (NORMAL)
--- NOTE | 2018-03-05 10:03 | PN ---
Copied To: Jovan James MD Attending MD: Jovan James MD DATE: 03/05/2018 SUBJECTIVE: The patient is seen earlier today in 376, bed 1. She is comfortable. No fevers and no chills. No nausea or vomiting. OBJECTIVE: VITAL SIGNS: On exam, temperature is 98, blood pressure is 132/70, respiratory rate of 20. HEENT: Examination is unremarkable. NECK: Supple. LUNGS: Have decreased breath sounds. HEART: Normal S1, S2. DATA: Laboratory examination reveals a white count of 26,000, hemoglobin of 8, BUN of 26, creatinine of 0.7. Chemistries are noted. Urinalysis is noted. Microbiology reveals the urine culture has a gram-positive cocci. The blood cultures, there are no growth at 48 hours. Review of orders reveal the patient to be on vancomycin and meropenem. ASSESSMENT AND PLAN: This is a 77-year-old female with sepsis, right lower lobe healthcare-associated pneumonia, possible gram-positive cocci, possible gram-negative carlos alberto and with a history of sepsis and history of coag-negative staph bacteremia due to a Port-A-Cath which was removed in a patient with breast cancer with central nervous system metastases and SPA HOST shunt placement and coronary artery disease, on day #3 of vancomycin and meropenem with negative procalcitonin, negative blood cultures; however, gram-positive cocci in the urine in a patient who has a negative urinalysis, most likely a gram-positive cocci contamination. We will follow closely with you. Overall prognosis is quite poor, should consider a more supportive care in this patient with central nervous system metastases. Jovan James MD
--- NOTE | 2018-03-05 10:53 | CP.PCM.CON ---
History of Present Illness - History of Present Illness History of Present Illness: Palliative consult requested by Dr iKmberli Johnson Reason: Advance care planning 77 year old female with history of metastatic breast cancer who presented to ED with generalized weakness, decreased motor skills and occasional fevers. Recently discharged from [facility] wheres she was diagnosed with pneumonia and treated with antibiotic therapy. The patient denied nausea, vomiting, abdominal/ chest pain, hemoptysis,shortness of breath, headache. Chest x ray showed progressive consolidated changes and volume loss in right lung. Chest CT showed an increase in size of right chest wall mass, increase in right pleural effusion with compressive atelectasis in RLL, RUL infiltrated which was previously identified. Head CT showing vague area of diminished attenuation in right cerebellar hemisphere. MRI of brain affirms an enhancing mass in the right cerebellar hemisphere near the midline, there is surrounding vasogenic edema,findings consistent with metastatic disease. Labs on admission:Wbc 20.8, Hgb 8.6, Plt 96, NA 136, K 4.7, Bun 29, creat. 0.9, Alk Phos 114, LDH 1360, TCK 26, T Protein 5.0, Albumin 2.6, Procalcitonin 035 PMH:breast cancer with brain metastasis s/p EXHIBIT CLEANER shunt, s/p right mastectomy currently on chemotherapy,HTN, seizure disorder Social History: Non smoker, no alcohol or drug use. Lives with daughter Alena. Family History: Non contributory. Advance Care Planning: The patient does not have an Advanced Directive. Past Patient History - Past Social History Smoking Status: Never Smoked - CARDIAC Hx Cardiac Disorders: Yes Hx Hypertension: Yes - PULMONARY Hx Respiratory Disorders: Yes Hx Pneumonia: Yes - NEUROLOGICAL Hx Neurological Disorder: Yes Other/Comment: BRAIN TUMOR, VENTRICULAR SHUNT - HEENT Hx HEENT Problems: No - RENAL Hx Chronic Kidney Disease: No - ENDOCRINE/METABOLIC Hx Endocrine Disorders: No - HEMATOLOGICAL/ONCOLOGICAL Hx Blood Disorders: Yes Hx Cancer: Yes - INTEGUMENTARY Hx Dermatological Problems: No - MUSCULOSKELETAL/RHEUMATOLOGICAL Hx Musculoskeletal Disorders: Yes Hx Falls: Yes - GASTROINTESTINAL Hx Gastrointestinal Disorders: No - GENITOURINARY/GYNECOLOGICAL Hx Genitourinary Disorders: No - PSYCHIATRIC Hx Psychophysiologic Disorder: No - SURGICAL HISTORY Hx Surgeries: Yes Hx Mastectomy: Yes (Right) - ANESTHESIA Hx Anesthesia Reactions: No Hx Malignant Hyperthermia: No Meds Allergies/Adverse Reactions: Allergies Allergy/AdvReac Type Severity Reaction Status Date / Time ANTHONY Inhibitors Allergy SWELLING Verified 03/02/18 19:45 Penicillins Allergy SWELLING Verified 03/02/18 19:45 - Medications Medications: Current Medications Apixaban (Eliquis) 5 mg PO BID [facility] PRN Reason: Protocol Last Admin: 03/05/18 10:27 Dose: 5 mg Carvedilol (Coreg) 12.5 mg PO DAILY [facility] Last Admin: 03/05/18 10:26 Dose: 12.5 mg Dexamethasone (Decadron) 4 mg PO BID [facility] Last Admin: 03/05/18 10:25 Dose: 4 mg Doxycycline Hyclate (Doryx) 100 mg PO Q12 [facility] PRN Reason: Protocol Last Admin: 03/05/18 10:27 Dose: 100 mg Escitalopram Oxalate (Lexapro) 10 mg PO DAILY [facility] Last Admin: 03/05/18 10:25 Dose: 10 mg Furosemide (Lasix) 20 mg PO DAILY [facility] Last Admin: 03/05/18 10:26 Dose: 20 mg Meropenem (Merrem Iv 1 Gm Premix) 50 mls @ 100 mls/hr IVPB Q8 [facility] PRN Reason: Protocol Last Admin: 03/05/18 05:21 Dose: 100 mls/hr Vancomycin HCl (Vancomycin 1gm) 1 gm in 250 mls @ 167 mls/hr IVPB Q12H [facility] PRN Reason: Protocol Last Admin: 03/05/18 05:47 Dose: 167 mls/hr Levetiracetam (Keppra) 250 mg PO BID [facility] Last Admin: 03/05/18 10:27 Dose: 250 mg Pregabalin (Lyrica) 50 mg PO DAILY [facility] Last Admin: 03/05/18 10:25 Dose: 50 mg Physical Exam - Constitutional Appears: No Acute Distress, Chronically Ill - Head Exam Head Exam: NORMOCEPHALIC - Eye Exam Eye Exam: Normal appearance, PERRL - ENT Exam ENT Exam: Mucous Membranes Moist, Normal Oropharynx - Neck Exam Neck exam: Positive for: Normal Inspection - Respiratory Exam Respiratory Exam: Decreased Breath Sounds, NORMAL BREATHING PATTERN - Cardiovascular Exam Cardiovascular Exam: +S1, +S2 - GI/Abdominal Exam GI & Abdominal Exam: Normal Bowel Sounds, Soft Results - Vital Signs Recent Vital Signs: Last Vital Signs Temp 98.2 F 03/05/18 06:00 Pulse 77 03/05/18 10:26 Resp 20 08/15/18 06:00 BP 132/72 03/05/18 10:26 Pulse Ox 100 03/05/18 06:00 - Labs Result Diagrams: 03/05/18 06:00 03/05/18 06:00 Labs: Laboratory Results - last 24 hr 03/04/18 03/04/18 03/04/18 11:43 14:10 14:10 WBC 24.1 H RBC 2.81 L Hgb 8.5 L Hct 26.1 L MCV 92.9 MCH 30.2 MCHC 32.6 RDW 19.6 H Plt Count 116 L MPV 9.9 Gran % Lymph % (Auto) Menard % (Auto) Eos % (Auto) Baso % (Auto) Gran # Lymph # (Auto) Menard # (Auto) Eos # (Auto) Baso # (Auto) Neutrophils % (Manual) Band Neutrophils % Lymphocytes % (Manual) Monocytes % (Manual) Nucleated RBC % Platelet Evaluation Sodium 137 Potassium 4.5 Chloride 104 Carbon Dioxide 26 Anion Gap 11 BUN 25 H Creatinine 0.8 Est GFR ( Amer) > 60 Est GFR (Non-Af Amer) > 60 POC Glucose (mg/dL) 116 H Random Glucose 183 H Calcium 8.9 Total Bilirubin 0.6 AST 32 ALT 26 Alkaline Phosphatase 106 Total Protein 5.1 L Albumin 2.7 L Globulin 2.4 Albumin/Globulin Ratio 1.1 03/05/18 03/05/18 03/05/18 06:00 06:00 07:49 WBC 26.3 H* RBC 2.72 L Hgb 8.3 L Hct 25.3 L MCV 93.0 MCH 30.5 MCHC 32.8 RDW 19.7 H Plt Count 144 MPV 9.8 Gran % 94.0 H Lymph % (Auto) 3.3 L Menard % (Auto) 2.5 Eos % (Auto) 0.0 L Baso % (Auto) 0.2 Gran # 24.74 H Lymph # (Auto) 0.9 L Menard # (Auto) 0.7 H Eos # (Auto) 0.0 Baso # (Auto) 0.04 Neutrophils % (Manual) 91 H Band Neutrophils % 7 H Lymphocytes % (Manual) 2 L Monocytes % (Manual) TEST NOT PERFORMED Nucleated RBC % 1 Platelet Evaluation Normal Sodium 137 Potassium 4.5 Chloride 106 Carbon Dioxide 26 Anion Gap 10 BUN 26 H Creatinine 0.7 Est GFR ( Amer) > 60 Est GFR (Non-Af Amer) > 60 POC Glucose (mg/dL) 120 H Random Glucose 139 H Calcium 8.4 Total Bilirubin 0.6 AST 32 ALT 27 Alkaline Phosphatase 103 Total Protein 5.1 L Albumin 2.6 L Globulin 2.5 Albumin/Globulin Ratio 1.0 L Assessment & Plan - Assessment and Plan (Free Text) Assessment: 77 year old female with history of HTN, breast cancer mets to brain s/p EXHIBIT CLEANER shunt who is admitted with weakness,decreased motor skills, leukocytosis, anemia, thrombocytopenia, RLL infiltrate and seizure disorder. The patient is alert and oriented. She is aware of her diagnosis. Complains of weakness,denies pain. States her appetite is good. Discussion regarding advance care planning ensued. Patient states that she has"everything taken care of". Patient does not want to talk about this topic and asks that I speak with her daughter,Tea instead. Will contact daughter in order to discuss advance care planning., Time spent with patient in goals of care discussion, 10 minutes Plan: Weakness/ decreased motor skills: MRI of brain showed enhancing lesion in right cerebellar hemisphere with surrounding vasogenic edema. Neuro following. Continue Decadron, Keppra. Breast cancer/brain mets: Oncology consulted. Leukoytosis: ID following, blood culture negative, urine + for VRE, continue Doxycycline and Merrem. Deconditioning: PT/OT Goals of care and advance care planning
--- NOTE | 2018-03-05 14:06 | PN ---
Copied To: Cathy Johnson MD Attending MD: Cathy Johnson MD DATE: 03/05/2018 SUBJECTIVE: The patient is 77 years old, seen and examined, complained of generalized weakness, had no energy to even stand up, was evaluated by therapist, was able to sit by the edge of the bed and had difficulty standing up. PHYSICAL EXAMINATION: VITAL SIGNS: She is afebrile, pulse 77, respirations 20, blood pressure 152/72. LUNGS: Bilateral fair airflow. No rhonchi or crackle. HEART: S1, S2 audible. ABDOMEN: Soft, nontender. No rebound, no guarding. NEUROLOGICAL: She is awake and alert, able to communicate, able to move all extremities. No focal deficits. Has generalized weakness. DATA: Laboratory exam: WBC is 26.3, hemoglobin 8.3, hematocrit 25.3, platelets of 144. Chemistry: Sodium 137, potassium 4.5, chloride 106, CO2 of 26, BUN 26, creatinine 0.7, blood sugar of 180. Blood cultures are negative. Urine has vancomycin-resistant Enterococcus faecium. CT of the chest shows right chest mass causing atelectasis and pleural effusion and MRI of the brain shows cerebellar metastasis ASSESSMENT AND PLAN: 1. Generalized weakness, difficulty walking. 2. Metastatic breast cancer with metastases to the brain. 3. Enterococcus faecium urinary tract infection. PLAN: I will start her on IV Decadron, continue her on Keppra. Discussion is undergoing for possible subacute rehab placement. I will continue on doxycycline and Eliquis. Currently, she is on meropenem and vancomycin. Cathy Johnson MD
[2018-03-05] MEDS: Dexamethasone 4 mg/1 ml IVP SCH ×2 (14:25→18:41)
[2018-03-05] MEDS ORDERED: Linezolid 600 mg in D5W 300 ml 600 MG/300 ML BAG IVPB SCH (22:00)
[2018-03-06] MEDS ORDERED: Pantoprazole 40 mg EC Tab PO SCH (06:30)
[2018-03-06 06:38] LABS: BASO # 0.04 K/mm3 (0.0-2.0); BASO % 0.1 % (0.0-3.0); GRAN # 27.91 (1.4-6.5); GRAN % 93.4 % (50.0-68.0); HEMOGLOBIN 8.5 g/dL (12.0-16.0); LYMPH # 1.2 (1.2-3.4); LYMPH % 3.9 % (22.0-35.0); MEAN CELL VOLUME 93.6 fl (80.0-105.0); MEAN CORPUSCULAR HEMOGLOBIN 30.1 pg (25.0-35.0); MEAN CORPUSCULAR HGB CONC 32.2 g/dl (31.0-37.0); MEAN PLATELET VOLUME 9.2 fl (7.0-11.0); MONO # 0.8 (0.1-0.6); MONO % 2.6 % (1.0-6.0); RBC 2.82 10^6/uL (3.5-6.1); RED CELL DISTRIBUTION WIDTH 19.2 % (11.5-14.5)
[2018-03-06 07:08] LABS: FREE T4 0.89 ng/dL (0.78-2.19)
[2018-03-06 07:12] LABS: ALBUMIN 2.8 g/dL (3.0-4.8); BLOOD UREA NITROGEN 33 mg/dL (7-21); CALCIUM 9.1 mg/dL (8.4-10.5); GFR AFRICAN-AMERICAN > 60; GFR NON-AFRICAN AMERICAN > 60
[2018-03-06 07:13] LABS: ALB/GLOB RATIO 1.1 (1.1-1.8); ALT/SGPT 27 U/L (7-56); AST/SGOT 31 U/L (14-36)
[2018-03-06 07:19] LABS: WHITE BLOOD COUNT 29.9 10^3/ul (4.5-11.0)
[2018-03-06 08:37] VITALS: TEMP 98.2
[2018-03-06] MEDS: Dexamethasone 4 mg/1 ml IVP SCH ×2 (10:12→14:02)
[2018-03-06 10:17] VITALS: BP 138/66; PULSE 93
[2018-03-06 15:16] VITALS: O2SAT 2
--- NOTE | 2018-03-06 15:16 | IP.NPCORE ---
Pneumonia Progress Notes - Oxygenation Assessment (REQUIRED) O2 Saturation: 2 Oxygen Delivery Method: Nasal Cannula Date: 03/06/18 - Blood Cultures (REQUIRED) Culture drawn: Yes Date:: 03/02/18 - Initial Antibiotic Initial Antibiotic given within Four Hours:: Yes Date:: 03/02/18 - Appropriate Antibiotic Appropriate Antibiotic within 24 hours of Admission:: Yes Date:: 03/02/18 Time:: 23:10 No change in antibiotics: No (Doryx PO, Vanco IV) - Pneumonia Vaccine Pneumonia Vaccine: No - Smoking Cessation Smoking Cessation counseling provided:: No (n/a) Ex-Smoker (has not smoked in the last 12 months): No Current Smoker - smoking cessation education provided: No
--- NOTE | 2018-03-06 17:26 | PN ---
Copied To: Jovan James MD Attending MD: Jovan James MD DATE: 03/06/2018 SUBJECTIVE: The patient is seen earlier today, in no acute distress, nontoxic. PHYSICAL EXAMINATION: VITAL SIGNS: Temperature is 98, blood pressure is 130/60, respiratory rate of 16. HEENT: Unremarkable. NECK: Supple. LUNGS: Have decreased breath sounds. HEART: Normal S1, S2. ABDOMINAL: Soft, nontender. No organomegaly. No rebound. No guarding. No masses. LABORATORY EXAMINATION: Reveals the patient's white count of 29,000, hemoglobin of 8. Chemistries are noted. Serology is reviewed. Urinalysis is noted. ASSESSMENT AND PLAN: A 77-year-old female with sepsis, right lower lobe healthcare-associated pneumonia, possible Gram-positive cocci, possible Gram-negative carlos alberto, history of sepsis, history of coag-negative staph bacteremia due to a Port-A-Cath, which was removed. 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 Overall, the patient's condition is poor, should consider a hospice setting. Currently on p.o. Zyvox because of a vancomycin-resistant Enterococcus in the urine, day #2 of Zyvox now. She would complete a short course therapy. The patient is also on Decadron, which may explain the leukocytosis. Jovan James MD : 03/06/2018 16:35:40
--- NOTE | 2018-03-07 11:18 | DS ---
Copied To: Cathy Johnson MD Attending MD: Cathy Johnson MD HISTORY OF PRESENT ILLNESS: The patient is 77 years old, seen and examined, still has generalized weakness, difficulty walking, has difficulty ambulating, evaluated by physical therapist, was able to hardly stand up, was recommended DALILA, but the patient and patient's daughter are not agreeable; however, we will try TCU, and after that, she will be taken home with home PT, and does not have any nausea, vomiting or diarrhea. No fever. No chills. Eating well. No cough, congestion. No hemoptysis. No hematemesis. Initially, he was admitted because of deconditioning and difficulty walking, had CT scan that shows right chest wall has mass, eroding and causing pleural effusion and atelectasis. No evidence of pneumonia. However, she had MRI also done that shows enhancing lesion in the cerebellum, and so patient is being transferred to TCU for rehab and close monitoring. PHYSICAL EXAMINATION: GENERAL: She is awake, alert, oriented, communicative. VITAL SIGNS: She is afebrile, pulse 93, respiration 20, blood pressure 138/66. LUNGS: Bilateral fair airflow. No rhonchi or crackle. HEART: S1 and S2 audible. ABDOMEN: Soft, nontender, obese. No hepatosplenomegaly. NEUROLOGIC: She is awake, alert, oriented, communicative. LABORATORY DATA: WBC 29.9, hemoglobin 8.5, hematocrit 26.4, platelet of 154. Chemistry, sodium 137, potassium 5, chloride 104, CO2 of 28, BUN 33, creatinine 0.8, blood sugar 138. LFTs are within normal limits. Legionella titer is negative. Urine shows vancomycin-resistant Enterococcus faecium. Currently on Zyvox. ASSESSMENT: 1. History of right breast tumor, status post mastectomy. 2. Right chest wall tumor. 3. Brain metastases. 4. Deconditioning, difficulty walking. 5. History of hypertension. 6. Neuropathy. 7. History of seizures. PLAN: The patient is going to be transferred to TCU. We will resume all the medications. We will continue physical therapy. We will follow up the patient . Cathy Johnson MD [facility] # [id number]
== END 2018-03-06 16:40 | DRG 871 ==
LOC: ED 19:07 → ERH 22:51 → 3RSO 03-03 01:20
PROVIDERS: ADMIT Internal Medicine; ATTEND Internal Medicine
DX: A41.9 Sepsis, unspecified organism (principal); J18.9 Pneumonia, unspecified organism; G93.6 Cerebral edema; C79.31 Secondary malignant neoplasm of brain; N39.0 Urinary tract infection, site not specified; B95.2 Enterococcus as the cause of diseases classified elsewhere; Z16.21 Resistance to vancomycin; I10 Essential (primary) hypertension; I25.10 Atherosclerotic heart disease of native coronary artery without angina pectoris; D64.9 Anemia, unspecified; D69.6 Thrombocytopenia, unspecified; G40.909 Epilepsy, unspecified, not intractable, without status epilepticus; R26.2 Difficulty in walking, not elsewhere classified; Y95 Nosocomial condition; Z85.3 Personal history of malignant neoplasm of breast; Z86.718 Personal history of other venous thrombosis and embolism; Z90.11 Acquired absence of right breast and nipple; Z98.2 Presence of cerebrospinal fluid drainage device; Z79.01 Long term (current) use of anticoagulants; Z88.8 Allergy status to other drugs, medicaments and biological substances; Z88.0 Allergy status to penicillin

== ENCOUNTER 2018-03-06 16:40 | Inpatient (IN) | payer OTHER, MEDICARE ==
[2018-03-06 18:00] VITALS: BMI 34.5
[2018-03-07] MEDS: Pantoprazole 40 mg EC Tab PO SCH (05:49)
[2018-03-07] MEDS: Dexamethasone 4 mg/1 ml IVP SCH ×3 (09:26→17:14)
[2018-03-07] MEDS: Meropenem IV 1 gm in NS 50 ML IVPB SCH ×2 (13:01→21:21)
--- NOTE | 2018-03-07 13:38 | CP.PCM.CON ---
History of Present Illness - History of Present Illness History of Present Illness: 77 year old female with PMH of breast cancer with CVT RN metastases S/P [employer] shunt placement, CAD, S/P port removal for coagulase negative staph bacteremia was [place] [facility] [place]y and generalized weakness, and was found to have RLL HCAP, as well VRE UTI. She has been doing well with antibiotics and is now transferred to [facility] for continued medical therapy and physical rehab. Infectious diseases consult is requested to continue her antibiotic therapy. She is comfortable on a chair, no fevers, not in distress, no vomiting, no diarrhea. Review of Systems - Review of Systems All systems: reviewed and no additional remarkable complaints except (as per HPI ) Past Patient History - Past Social History Smoking Status: Unknown If Ever Smoked - CARDIAC Hx Hypertension: Yes - PULMONARY Hx Pneumonia: Yes - NEUROLOGICAL Hx Neurological Disorder: Yes Other/Comment: BRAIN TUMOR, VENTRICULAR SHUNT - HEENT Hx HEENT Problems: No - RENAL Hx Chronic Kidney Disease: No - ENDOCRINE/METABOLIC Hx Endocrine Disorders: No - HEMATOLOGICAL/ONCOLOGICAL Hx Blood Disorders: Yes Hx Cancer: Yes - INTEGUMENTARY Hx Dermatological Problems: No - MUSCULOSKELETAL/RHEUMATOLOGICAL Hx Falls: Yes - GASTROINTESTINAL Hx Gastrointestinal Disorders: No - GENITOURINARY/GYNECOLOGICAL Hx Genitourinary Disorders: No - PSYCHIATRIC Hx Psychophysiologic Disorder: No - SURGICAL HISTORY Hx Surgeries: Yes Hx Mastectomy: Yes (Right) - ANESTHESIA Hx Anesthesia Reactions: No Hx Malignant Hyperthermia: No Meds Allergies/Adverse Reactions: Allergies Allergy/AdvReac Type Severity Reaction Status Date / Time ANTHONY Inhibitors Allergy SWELLING Verified 03/06/18 17:53 Penicillins Allergy SWELLING Verified 03/06/18 17:53 - Medications Medications: Current Medications Apixaban (Eliquis) 5 mg PO BID LALO PRN Reason: Protocol Last Admin: 03/07/18 09:27 Dose: 5 mg Carvedilol (Coreg) 12.5 mg PO 0800 LALO PRN Reason: Protocol Last Admin: 03/07/18 07:51 Dose: 12.5 mg Dexamethasone (Decadron Inj) 4 mg IVP TID LALO PRN Reason: Protocol Last Admin: 03/07/18 09:26 Dose: 4 mg Escitalopram Oxalate (Lexapro) 10 mg PO DAILY LALO PRN Reason: Protocol Last Admin: 03/07/18 09:28 Dose: 10 mg Furosemide (Lasix) 20 mg PO DAILY LALO PRN Reason: Protocol Last Admin: 03/07/18 09:28 Dose: 20 mg Levetiracetam (Keppra) 250 mg PO BID LALO PRN Reason: Protocol Last Admin: 03/07/18 09:27 Dose: 250 mg Linezolid (Zyvox) 600 mg PO BID LALO PRN Reason: Protocol Last Admin: 03/07/18 09:27 Dose: 600 mg Pantoprazole Sodium (Protonix Ec Tab) 40 mg PO 0630 LALO PRN Reason: Protocol Last Admin: 03/07/18 05:49 Dose: 40 mg Pregabalin (Lyrica) 50 mg PO DAILY LALO PRN Reason: Protocol Last Admin: 03/07/18 09:31 Dose: 50 mg Physical Exam - Constitutional Appears: Non-toxic, Chronically Ill - Head Exam Head Exam: NORMAL INSPECTION - Respiratory Exam Respiratory Exam: Decreased Breath Sounds - Cardiovascular Exam Cardiovascular Exam: +S1, +S2 - GI/Abdominal Exam GI & Abdominal Exam: Soft. absent: Tenderness Results - Vital Signs Recent Vital Signs: Last Vital Signs Temp Pulse 85 03/07/18 09:49 Resp 19 03/06/18 18:12 BP 127/82 03/07/18 09:28 Pulse Ox 100 03/07/18 09:49 Assessment & Plan - Assessment and Plan (Free Text) Plan: Assessment Sepsis due to right lower lobe healthcare-associated pneumonia with possible gram positive cocci and/or gram negative bacilli as well as VRE UTI history of sepsis from coagulase negative staph bacteremia, consider due to the port, S/P port removal breast cancer with CVT RN metastases S/P [employer] shunt placement CAD Plan continue Zyvox (day 3) and Merrem day 5 and will continue to monitor clinically overall prognosis is poor
--- NOTE | 2018-03-07 15:22 | CP.PCM.CON ---
History of Present Illness - History of Present Illness History of Present Illness: (Covering for Dr. Dinh) 77 year old female with long history of metastatic breast cancer progressed on multiple lines of chemotherapy she was recently started on Ixempra last dose was on 02/20/18 at our facility who was admitted for weakness and found to have VRE. She was recenlty [place] [facility] [place] where she was found to have gram negative bacteremia for which she was initially treated with IV abx and discharged on Saturday with Levaquin. Patient was weaker according to her daughter who brought her in for evaluation to [place]. She was admitted and found to have VRE in the urine for which she is currently on Zyvox and Meropenom. Patient was also found to have chest wall mass which is eroding the rib likely from progressive disease. Patient states that she is feeling better since admission and is currently being managed in the rehab unit. SHe is currently had multiple loose bowel movement starting today. No abdominal pain, fevers, chills, nausea, vomiting, shortness of breath or other complaints. Review of Systems - Constitutional Constitutional: Fatigue, Headache, Weakness. absent: Fever, Frequent Falls, Increased Appetite, Lethargy, Malaise, Night Sweats - EENT Eyes: absent: Blind Spots, Blurred Vision, Change in Vision, Decreased Night Vision, Diplopia, Dry Eye, Floaters, Irritation, Itchy Eyes, Loss of Peripheral Vision Ears: As Per HPI Nose/Mouth/Throat: absent: Nasal Congestion, Nasal Discharge, Nasal Obstruction , Nasal Trauma, Nose Pain, Dry Mouth, Dysphagia, Sore Throat, Throat Swelling, Tongue Swelling - Cardiovascular Cardiovascular: Pedal Edema. absent: Chest Pain, Chest Pain at Rest, Chest Pain with Activity, Claudication, Diaphoresis, Dyspnea on Exertion, Edema, Irregular Heart Rhythm, Palpitations, Paroxysmal Nocturnal Dyspnea - Respiratory Respiratory: Wheezing. absent: Cough, Dyspnea, Hemoptysis, Dyspnea on Exertion - Gastrointestinal Gastrointestinal: Change in Bowel Habits, Loose Stools. absent: Abdominal Pain , Bloating, Early Satiety, Melena, Nausea, Vomiting - Genitourinary Genitourinary: Difficulty Urinating, Dysuria. absent: Change in Urinary Stream , Urinary Hesitance, Urinary Urgency - Reproductive: Female Reproductive:Female: As Per HPI - Menstruation Menstruation: As Per HPI - Musculoskeletal Musculoskeletal: absent: Arthralgias, Back Pain, Limited Range of Motion - Integumentary Integumentary: Skin Pain, Skin Ulcer, Sores - Neurological Neurological: As Per HPI - Psychiatric Psychiatric: Depression - Endocrine Endocrine: As Per HPI - Hematologic/Lymphatic Hematologic: As Per HPI Past Patient History - Infectious Disease Hx of Infectious Diseases: VRE - Past Medical History & Family History Past Medical History?: Yes Pertinent Family History: Metastatic breast cancer S/P VPN due to mets to brain HTN Chemoport bacteremia in November 2017 s/p removal of infected port. - Past Social History Smoking Status: Heavy Smoker > 10 Cigarettes Daily Chewing Tobacco Use: No - CARDIAC Hx Hypertension: Yes - PULMONARY Hx Pneumonia: Yes - NEUROLOGICAL Hx Neurological Disorder: Yes Other/Comment: BRAIN TUMOR, VENTRICULAR SHUNT - HEENT Hx HEENT Problems: No - RENAL Hx Chronic Kidney Disease: No - ENDOCRINE/METABOLIC Hx Endocrine Disorders: No - HEMATOLOGICAL/ONCOLOGICAL Hx Blood Disorders: Yes Hx Cancer: Yes (metastatic breast cancer) - INTEGUMENTARY Hx Dermatological Problems: No - MUSCULOSKELETAL/RHEUMATOLOGICAL Hx Falls: Yes - GASTROINTESTINAL Hx Gastrointestinal Disorders: No - GENITOURINARY/GYNECOLOGICAL Hx Genitourinary Disorders: No - PSYCHIATRIC Hx Psychophysiologic Disorder: No - SURGICAL HISTORY Hx Surgeries: Yes Hx Mastectomy: Yes (Right) - ANESTHESIA Hx Anesthesia Reactions: No Hx Malignant Hyperthermia: No Meds Allergies/Adverse Reactions: Allergies Allergy/AdvReac Type Severity Reaction Status Date / Time ANTHONY Inhibitors Allergy SWELLING Verified 03/06/18 17:53 Penicillins Allergy SWELLING Verified 03/06/18 17:53 - Medications Medications: Current Medications Apixaban (Eliquis) 5 mg PO BID LALO PRN Reason: Protocol Last Admin: 03/07/18 09:27 Dose: 5 mg Carvedilol (Coreg) 12.5 mg PO 0800 LALO PRN Reason: Protocol Last Admin: 03/07/18 07:51 Dose: 12.5 mg Dexamethasone (Decadron Inj) 4 mg IVP TID LALO PRN Reason: Protocol Last Admin: 03/07/18 13:01 Dose: 4 mg Escitalopram Oxalate (Lexapro) 10 mg PO DAILY LALO PRN Reason: Protocol Last Admin: 03/07/18 09:28 Dose: 10 mg Furosemide (Lasix) 20 mg PO DAILY LAOL PRN Reason: Protocol Last Admin: 03/07/18 09:28 Dose: 20 mg Meropenem (Merrem Iv 1 Gm Premix) 50 mls @ 100 mls/hr IVPB Q8 LALO PRN Reason: Protocol Stop: 03/09/18 14:01 Last Admin: 03/07/18 13:01 Dose: 100 mls/hr Levetiracetam (Keppra) 250 mg PO BID LALO PRN Reason: Protocol Last Admin: 03/07/18 09:27 Dose: 250 mg Linezolid (Zyvox) 600 mg PO BID LALO PRN Reason: Protocol Last Admin: 03/07/18 09:27 Dose: 600 mg Pantoprazole Sodium (Protonix Ec Tab) 40 mg PO 0630 LALO PRN Reason: Protocol Last Admin: 03/07/18 05:49 Dose: 40 mg Pregabalin (Lyrica) 50 mg PO DAILY LALO PRN Reason: Protocol Last Admin: 03/07/18 09:31 Dose: 50 mg Physical Exam - Constitutional Appears: Non-toxic - Head Exam Head Exam: ATRAUMATIC, NORMAL INSPECTION, NORMOCEPHALIC - Eye Exam Eye Exam: Conjunctival injection, EOMI, Normal appearance, PERRL - ENT Exam ENT Exam: Normal Exam - Neck Exam Additional comments: no palpable lymphadenopathy chemoport in place right chest wall. - Respiratory Exam Respiratory Exam: Clear to Auscultation Bilateral, NORMAL BREATHING PATTERN. absent: Chest Wall Tenderness, Decreased Breath Sounds, Wheezes, Respiratory Distress - Cardiovascular Exam Cardiovascular Exam: REGULAR RHYTHM, +S1, +S2 - GI/Abdominal Exam GI & Abdominal Exam: Normal Bowel Sounds, Soft - Rectal Exam Rectal Exam: Deferred - Extremities Exam Extremities exam: Positive for: full ROM, normal inspection, pedal edema - Back Exam Back exam: NORMAL INSPECTION - Neurological Exam Neurological exam: Alert, Oriented x3 - Psychiatric Exam Psychiatric exam: Depressed Results - Vital Signs Recent Vital Signs: Last Vital Signs Temp Pulse 85 03/07/18 09:49 Resp 19 03/06/18 18:12 BP 127/82 03/07/18 09:28 Pulse Ox 100 03/07/18 09:49 Assessment & Plan (1) Breast cancer in female Status: Chronic Priority: High Onset Date: 2003 - Assessment and Plan (Free Text) Assessment: 77 year old female with extensive medical history including metastatic breast cancer s/p multiple lines of treatment including brain irraditation and mastectomy most recently started on Ixempra last dose 02/20/18 alin admitted for weakness and VRE in the urine. She is currently on Zyvox and [place] for the aforementioned. Leukocytosis likely multifactorial due to steroids administration and ongoing infection. Anemia is of chronic disease and recent chemotherapy. Brain lesions are unchanged from before and she is currently on steroids. Plan: Continue current antibiotic therapy Rule out C diff Percocet for pain (ordered) IV hydration Continue steroids, but would taper slowly Will resume chemotherapy after patient is discharged from the hospital. Thank you for allowing me to partake in your patients care Sincerely, Juan Bryan (covering for Dr. Dinh)
--- NOTE | 2018-03-07 15:24 | HP ---
Copied To: Cathy Johnson MD Attending MD: Cathy Johnson MD HISTORY OF PRESENT ILLNESS: The patient is 77 years old, known to me from previous admissions and brought in by daughter because of increasing weakness, unable to stand up, unable to walk. The patient does have known history of left breast cancer, status post mastectomy and that has mets to the cerebellum and local invasion of chest wall. The patient was recently admitted in the [facility], was told she has pneumonia. She was discharged home on antibiotic that she never bought. She was discharged on Saturday and brought to emergency room on Saturday. The patient was admitted on Acute Care floor. CT scan of the chest does not show any pneumonia; however, she has local invasion of the cancer causing atelectasis and pleural effusion. PAST MEDICAL HISTORY: She has past medical history significant for, 1. Hypertension. 2. Metastatic breast CA. 3. Chronic atrial fibrillation. 4. History of DVT. 5. Recently, she has infected Port-A-Cath removed and was given antibiotic for 4-6 weeks. 6. Seizure disorder. ALLERGIES: SHE IS ALLERGIC TO ANTHONY INHIBITORS AND PENICILLIN. MEDICATION AT HOME: She is on Lyrica 50 mg daily, Decadron 4 mg twice a day, Coreg 12.5 daily, Eliquis 5 mg twice a day, Zyvox 600 twice a day, Lasix 20 mg daily, Lexapro 10 mg daily, doxycycline 100 mg twice a day, Protonix 40 mg daily and Keppra 250 twice a day. SOCIAL HISTORY: She lives with her daughter. Denies smoking, drinking, alcohol use. PHYSICAL EXAMINATION: GENERAL: She is awake, alert, oriented, communicative, sitting in chair. VITAL SIGNS: She is afebrile, pulse 85, respirations 19, blood pressure 127/72. LUNGS: Bilateral good airflow. No rhonchi or crackle. HEART: S1 and S2 audible. ABDOMEN: Soft. Nontender. No rebound. No guarding. NEUROLOGICAL: She is awake, alert, oriented and communicative. Able to move all extremities. Has generalized weakness. Has difficulty walking. ASSESSMENT: 1. Metastatic breast cancer. 2. Deconditioning and difficulty walking. 3. Seizure disorder. 4. History of deep venous thrombosis. 5. Right chest wall tumor eroding into ribs. 6. Status post right mastectomy. 7. Chronic anemia. PLAN: Currently, the patient is on Coreg. She is on Decadron 4 mg three times a day, she is on Eliquis 5 mg twice a day, she is on Keppra 250 twice a day. Has been started on meropenem by Infectious Disease. She is Zyvox. We will recommend aggressive physical therapy. We will follow up the patient in the a.m. Cathy Johnson MD
[2018-03-07] MEDS: Oxycodone/Acetaminophen 5/325 mg Tab PO PRN (15:57)
[2018-03-08] MEDS: Pantoprazole 40 mg EC Tab PO SCH (05:33)
[2018-03-08] MEDS: Meropenem IV 1 gm in NS 50 ML IVPB SCH ×3 (05:33→21:26)
[2018-03-08] MEDS: Dexamethasone 4 mg/1 ml IVP SCH ×3 (10:33→17:57)
[2018-03-08] MEDS: Oxycodone/Acetaminophen 5/325 mg Tab PO PRN (12:07)
--- NOTE | 2018-03-08 12:10 | PN ---
Copied To: Jovan James MD Attending MD: Jovan James MD DATE: 03/08/2018 SUBJECTIVE: The patient is seen earlier today in room 314. No fevers and no chills. No nausea, no vomiting. OBJECTIVE: VITAL SIGNS: On exam, temperature is 98, blood pressure is 120/70, respiratory rate of 16. HEENT: Examination is unremarkable. NECK: Supple. LUNGS: Have decreased breath sounds. HEART: Normal S1, S2. ABDOMEN: Soft. DATA: Laboratory examination reveals the patient's white count is elevated at 29,000. Chemistries are noted. Microbiology reveals the blood cultures with no growth. Urine cultures had VRE. Review of orders reveals the patient to be on meropenem and Zyvox. 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 We will follow closely with you. Overall prognosis is quite poor. Jovan James MD
--- NOTE | 2018-03-08 14:20 | PN ---
Copied To: Cathy Johnson MD Attending MD: Cathy Johnson MD DATE: 03/08/2018 SUBJECTIVE: The patient is 77 years old, seen and examined. Sitting in chair, seems to be comfortable. Participated in therapy. Eating and tolerating. PHYSICAL EXAMINATION: VITAL SIGNS: She is afebrile, pulse 100, respirations 20, blood pressure 136/73. LUNGS: Bilateral good airflow. No rhonchi or crackle. HEART: S1, S2 audible. ABDOMEN: Soft, nontender. No rebound. No guarding. NEUROLOGICAL: She is awake, alert, oriented, communicative. Moves all extremities. EXTREMITIES: Bilateral leg +1 edema. ASSESSMENT: 1. Metastatic breast cancer. 2. 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 3. Deconditioning, difficulty walking. 4. Hypertension. 5. History of deep venous thrombosis. 6. Seizure disorder. PLAN: We will continue patient on meropenem. We will continue all other medication. Aggressive physical therapy. We will follow up patient . Cathy Johnson MD
[2018-03-09] MEDS: Meropenem IV 1 gm in NS 50 ML IVPB SCH (05:30)
[2018-03-09] MEDS: Pantoprazole 40 mg EC Tab PO SCH (05:30)
[2018-03-09] MEDS: Dexamethasone 4 mg/1 ml IVP SCH ×3 (09:55→17:04)
--- NOTE | 2018-03-09 13:00 | PN ---
Copied To: Jovan James MD Attending MD: Jovan James MD DATE: 03/09/2018 SUBJECTIVE: The patient seen earlier today in room 314. No fevers, no chills. PHYSICAL EXAMINATION: VITAL SIGNS: Temperature is 98, blood pressure is 119/70, respiratory rate of 20. HEENT: Unremarkable. NECK: Supple. LUNGS: Have decreased breath sounds. HEART: Normal S1, S2. ABDOMEN: Soft, nontender. LABORATORY DATA: Reveals the patient's laboratories are reviewed. Microbiology is also reviewed with a VRE in the urine. The blood cultures are negative and the patient had review of orders reveal the patient to be on meropenem and Zyvox. 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 We will discontinue both antibiotics. No further antibiotics necessary at this point. The patient is on Decadron and the patient is at risk for developing nosocomial infections. We will discontinue antibiotics. The patient has had adequate antibiotics and we will follow with you. Jovan James MD
[2018-03-10] MEDS: Pantoprazole 40 mg EC Tab PO SCH (06:13)
[2018-03-10] MEDS: Dexamethasone 4 mg/1 ml IVP SCH ×3 (10:30→17:18)
--- NOTE | 2018-03-10 13:23 | PN ---
Copied To: Cathy Johnson MD Attending MD: Cathy Johnson MD DATE: 03/10/2018 SUBJECTIVE: The patient is 77 years old, seen and examined, sitting in chair. Seems to be comfortable. Eating and tolerating. Participating in Therapy. Able to walk and take a few steps. PHYSICAL EXAMINATION: VITAL SIGNS: She is afebrile, pulse 94, respirations 18, blood pressure 100/59. LUNGS: Bilateral fair airflow. No rhonchi or crackle. HEART: S1 and S2 audible. ABDOMEN: Soft, obese. Nontender. No rebound. No guarding. NEUROLOGICAL: She is awake and alert, able to communicate. SKIN: She has some excoriation spot in her groin, perineal area and sacral area because of incontinence of urine, so plan is to start for urinary drainage to give chance for these wounds to heal. ASSESSMENT: 1. Deconditioning, difficulty walking. 2. Cancer of breast. 3. Recurrence of right breast cancer to right abdominal wall with atelectasis. 4. Hypertension. 5. Brain metastasis to the cerebellum. PLAN: Currently, the patient is on Coreg. She is on anticoagulant for DVT. She is on Eliquis. We will continue on Keppra. She is on Lexapro, analgesic as needed. We will follow up the patient in the morning. Cathy Johnson MD
--- NOTE | 2018-03-10 19:11 | CP.PCM.PN ---
Subjective - Date & Time of Evaluation Date of Evaluation: 03/10/18 Time of Evaluation: 11:45 - Subjective Subjective: Comfortable on a chair, no fevers, not in distress. Objective - Vital Signs/Intake and Output Vital Signs (last 24 hours): Temp Pulse Resp BP Pulse Ox 97.1 F L 94 H 18 100/59 L 98 03/09/18 10:00 03/10/18 08:12 03/09/18 10:00 03/10/18 10:29 03/09/18 10:00 - Medications Medications: Current Medications Apixaban (Eliquis) 5 mg PO BID LALO PRN Reason: Protocol Last Admin: 03/10/18 10:28 Dose: 5 mg Carvedilol (Coreg) 12.5 mg PO 0800 LALO PRN Reason: Protocol Last Admin: 03/10/18 08:12 Dose: 12.5 mg Dexamethasone (Decadron Inj) 4 mg IVP TID LALO PRN Reason: Protocol Last Admin: 03/10/18 10:30 Dose: 4 mg Escitalopram Oxalate (Lexapro) 10 mg PO DAILY LALO PRN Reason: Protocol Last Admin: 03/10/18 10:28 Dose: 10 mg Furosemide (Lasix) 20 mg PO DAILY LALO PRN Reason: Protocol Last Admin: 03/10/18 10:29 Dose: 20 mg Levetiracetam (Keppra) 250 mg PO BID LALO PRN Reason: Protocol Last Admin: 03/10/18 10:28 Dose: 250 mg Oxycodone/Acetaminophen (Percocet 5/325 Mg Tab) 2 tab PO Q6H PRN PRN Reason: Pain, moderate (4-7) Stop: 03/10/18 15:50 Last Admin: 03/08/18 12:07 Dose: 2 tab Pantoprazole Sodium (Protonix Ec Tab) 40 mg PO 0630 LALO PRN Reason: Protocol Last Admin: 03/10/18 06:13 Dose: 40 mg Pregabalin (Lyrica) 50 mg PO DAILY LALO PRN Reason: Protocol Last Admin: 03/10/18 10:28 Dose: 50 mg - Constitutional Appears: Chronically Ill - Head Exam Head Exam: NORMAL INSPECTION - ENT Exam ENT Exam: Mucous Membranes Moist - Neck Exam Neck Exam: absent: Meningismus - Respiratory Exam Respiratory Exam: Decreased Breath Sounds - Cardiovascular Exam Cardiovascular Exam: +S1, +S2 - GI/Abdominal Exam GI & Abdominal Exam: Soft. absent: Tenderness Assessment and Plan - Assessment and Plan (Free Text) Plan: Assessment S/P Sepsis due to right lower lobe healthcare-associated pneumonia with possible gram positive cocci and/or gram negative bacilli as well as VRE UTI history of sepsis from coagulase negative staph bacteremia, consider due to the port, S/P port removal breast cancer with HAND PAINTER metastases S/P COMMUNICATIONS EXECUTIVE shunt placement CAD Plan completed course of Zyvox and Merrem - will continue to monitor off antibiotics since she is at risk for nosocomial infections overall prognosis is poor
[2018-03-11] MEDS: Pantoprazole 40 mg EC Tab PO SCH (06:15)
[2018-03-11] MEDS: Dexamethasone 4 mg/1 ml IVP SCH ×3 (10:20→17:20)
--- NOTE | 2018-03-11 13:37 | PN ---
Copied To: Cathy Johnson MD Attending MD: Cathy Johnson MD DATE: 03/11/2018 SUBJECTIVE: The patient is a 77-year-old, seen and examined, lying in bed, seems to be comfortable. Complaining of generalized weakness. No nausea, no vomiting, no diarrhea. Eating fair. Participating in Therapy. Able to stand up and walk a few steps. PHYSICAL EXAMINATION VITAL SIGNS: She is afebrile, pulse 96, respirations 20, blood pressure 106/60. LUNGS: Bilateral fair airflow. No rhonchi or crackle. HEART: S1 and S2 audible. ABDOMEN: Soft, nontender. No rebound, no guarding. NEUROLOGIC: The patient is awake and alert and is able to communicate; feels depressed at times because of her increasing debility. ASSESSMENT: 1. Metastatic breast cancer. 2. Seizure disorder. 3. Deconditioning and difficulty walking. 4. Cerebellar metastasis. 5. History of deep venous thrombosis. PLAN: We will continue the patient on current medications. Encourage physical therapy, Possible discharge on Saturday. Cathy Johnson MD
--- NOTE | 2018-03-11 14:59 | CP.PCM.PN ---
Subjective - Date & Time of Evaluation Date of Evaluation: 03/11/18 Time of Evaluation: 10:55 - Subjective Subjective: No fevers, not in distress. Objective - Vital Signs/Intake and Output Vital Signs (last 24 hours): Temp Pulse Resp BP Pulse Ox 97.4 F L 96 H 20 129/71 100 03/10/18 16:00 03/10/18 16:00 03/10/18 16:00 03/10/18 16:00 03/10/18 16:00 - Medications Medications: Current Medications Apixaban (Eliquis) 5 mg PO BID LALO PRN Reason: Protocol Last Admin: 03/10/18 17:18 Dose: 5 mg Carvedilol (Coreg) 12.5 mg PO 0800 LALO PRN Reason: Protocol Last Admin: 03/10/18 08:12 Dose: 12.5 mg Dexamethasone (Decadron Inj) 4 mg IVP TID LALO PRN Reason: Protocol Last Admin: 03/10/18 17:18 Dose: 4 mg Escitalopram Oxalate (Lexapro) 10 mg PO DAILY LALO PRN Reason: Protocol Last Admin: 03/10/18 10:28 Dose: 10 mg Furosemide (Lasix) 20 mg PO DAILY LALO PRN Reason: Protocol Last Admin: 03/10/18 10:29 Dose: 20 mg Levetiracetam (Keppra) 250 mg PO BID LALO PRN Reason: Protocol Last Admin: 03/10/18 17:18 Dose: 250 mg Pantoprazole Sodium (Protonix Ec Tab) 40 mg PO 0630 LALO PRN Reason: Protocol Last Admin: 03/11/18 06:15 Dose: 40 mg Pregabalin (Lyrica) 50 mg PO DAILY LALO PRN Reason: Protocol Last Admin: 03/10/18 10:28 Dose: 50 mg - Constitutional Appears: Non-toxic, Chronically Ill - Head Exam Head Exam: NORMAL INSPECTION - Respiratory Exam Respiratory Exam: Decreased Breath Sounds - Cardiovascular Exam Cardiovascular Exam: +S1, +S2 - GI/Abdominal Exam GI & Abdominal Exam: Soft. 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
[2018-03-12] MEDS: Pantoprazole 40 mg EC Tab PO SCH (05:31)
[2018-03-12] MEDS: Dexamethasone 4 mg/1 ml IVP SCH ×2 (10:35→21:35)
--- NOTE | 2018-03-12 11:50 | CP.PCM.PN ---
Subjective - Date & Time of Evaluation Date of Evaluation: 03/12/18 Time of Evaluation: 10:45 - Subjective Subjective: Comfortable in bed, no fevers, not in distress. Objective - Vital Signs/Intake and Output Vital Signs (last 24 hours): Temp Pulse Resp BP Pulse Ox 98 F 89 18 131/72 98 03/11/18 16:00 03/12/18 08:23 03/11/18 16:00 03/12/18 08:23 03/11/18 16:00 Intake and Output: 03/12/18 03/12/18 06:59 18:59 Intake Total 420 Output Total 1100 Balance -680 - Medications Medications: Current Medications Apixaban (Eliquis) 5 mg PO BID LALO PRN Reason: Protocol Last Admin: 03/11/18 17:20 Dose: 5 mg Carvedilol (Coreg) 12.5 mg PO 0800 LALO PRN Reason: Protocol Last Admin: 03/12/18 08:23 Dose: 12.5 mg Dexamethasone (Decadron Inj) 4 mg IVP TID LALO PRN Reason: Protocol Last Admin: 03/11/18 17:20 Dose: 4 mg Escitalopram Oxalate (Lexapro) 10 mg PO DAILY LALO PRN Reason: Protocol Last Admin: 03/11/18 10:24 Dose: 10 mg Furosemide (Lasix) 20 mg PO DAILY LALO PRN Reason: Protocol Last Admin: 03/11/18 10:23 Dose: 20 mg Levetiracetam (Keppra) 250 mg PO BID LALO PRN Reason: Protocol Last Admin: 03/11/18 17:19 Dose: 250 mg Pantoprazole Sodium (Protonix Ec Tab) 40 mg PO 0630 LALO PRN Reason: Protocol Last Admin: 03/12/18 05:31 Dose: 40 mg Pregabalin (Lyrica) 50 mg PO DAILY LALO PRN Reason: Protocol Last Admin: 03/11/18 10:22 Dose: 50 mg - Constitutional Appears: Non-toxic, Chronically Ill - Head Exam Head Exam: NORMAL INSPECTION - Respiratory Exam Respiratory Exam: Decreased Breath Sounds - Cardiovascular Exam Cardiovascular Exam: +S1, +S2 - GI/Abdominal Exam GI & Abdominal Exam: Soft. 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
--- NOTE | 2018-03-12 14:03 | PN ---
Copied To: Cathy Johnson MD Attending MD: Cathy Johnson MD DATE: 03/12/2018 SUBJECTIVE: The patient is a 77-year-old, seen and examined. Complained of generalized weakness. As per therapist, she barely can stand up. She has right-sided swelling because of lymphedema and she cannot bear her weight, unable to walk even few steps. Doing poorly in physical therapy. PHYSICAL EXAMINATION: VITAL SIGNS: She is afebrile, pulse 89, respirations 18, blood pressure 134/70. LUNGS: Bilateral fair airflow. No rhonchi or crackle. HEART: S1 and S2 audible. ABDOMEN: Soft, nontender. No rebound, no guarding. EXTREMITIES: Right upper extremity lymphedema, so is the right lower extremity. ASSESSMENT: 1. Metastatic right breast cancer, status post right mastectomy. 2. Brain metastasis. 3. Hypertension. 4. Deconditioning, difficulty walking. 5. Perineal excoriation. 6. Sacral decubiti. PLAN: Currently, the patient is on dexamethasone 4 mg every 8 hours, I will taper down to every 12 hours. The patient is scheduled to be discharged on Saturday and will be discharged with home therapy. Cathy Johnson MD
[2018-03-12 16:30] VITALS: RESP 20
[2018-03-13] MEDS: Pantoprazole 40 mg EC Tab PO SCH (05:39)
[2018-03-13] MEDS: Dexamethasone 4 mg/1 ml IVP SCH (09:43)
--- NOTE | 2018-03-13 15:28 | CP.PCM.PN ---
Subjective - Date & Time of Evaluation Date of Evaluation: 03/13/18 Time of Evaluation: 11:20 - Subjective Subjective: Comfortable in bed, no fevers, not in distress Objective - Vital Signs/Intake and Output Vital Signs (last 24 hours): Temp Pulse Resp BP Pulse Ox 98.1 F 90 20 130/69 98 03/12/18 16:00 03/13/18 08:30 03/12/18 16:00 03/13/18 09:44 03/12/18 16:00 - Medications Medications: Current Medications Apixaban (Eliquis) 5 mg PO BID LALO PRN Reason: Protocol Last Admin: 03/13/18 09:43 Dose: 5 mg Carvedilol (Coreg) 12.5 mg PO 0800 LALO PRN Reason: Protocol Last Admin: 03/13/18 08:30 Dose: 12.5 mg Dexamethasone (Decadron Inj) 4 mg IVP Q12 LALO PRN Reason: Protocol Last Admin: 03/13/18 09:43 Dose: 4 mg Escitalopram Oxalate (Lexapro) 10 mg PO DAILY LALO PRN Reason: Protocol Last Admin: 03/13/18 09:44 Dose: 10 mg Furosemide (Lasix) 20 mg PO DAILY LALO PRN Reason: Protocol Last Admin: 03/13/18 09:44 Dose: 20 mg Levetiracetam (Keppra) 250 mg PO BID LALO PRN Reason: Protocol Last Admin: 03/13/18 09:43 Dose: 250 mg Pantoprazole Sodium (Protonix Ec Tab) 40 mg PO 0630 LALO PRN Reason: Protocol Last Admin: 03/13/18 05:39 Dose: 40 mg Pregabalin (Lyrica) 50 mg PO DAILY LALO PRN Reason: Protocol Last Admin: 03/13/18 09:44 Dose: 50 mg - Constitutional Appears: Non-toxic, Chronically Ill - Head Exam Head Exam: NORMAL INSPECTION - Neck Exam Neck Exam: absent: Meningismus - Respiratory Exam Respiratory Exam: Decreased Breath Sounds - Cardiovascular Exam Cardiovascular Exam: +S1, +S2 - GI/Abdominal Exam GI & Abdominal Exam: Soft. 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
[2018-03-13 16:13] VITALS: TEMP 98.7; O2SAT 96
--- NOTE | 2018-03-13 16:23 | PN ---
Copied To: Cathy Johnson MD Attending MD: Cathy Johnson MD DATE: 03/13/2018 SUBJECTIVE: The patient is 77 years old, seen and examined, doing well. No nausea, vomiting. No diarrhea. Participating in therapy. Only able to stand up, too weak to start walking as per therapist. PHYSICAL EXAMINATION: GENERAL: She is awake, alert, oriented, communicative. VITAL SIGNS: She is afebrile, pulse 90, respirations 20, and blood pressure 130/78. LUNGS: Bilateral fair airflow. No rhonchi or crackle. HEART: S1 and S2 audible. ABDOMEN: Soft, nontender. No rebound. No guarding. NEUROLOGICAL: She is awake, alert, oriented, and communicative. EXTREMITIES: Moves all extremities. She has left foot MRI done. Weakness of the right lower arm. LABORATORY DATA: She had VRE and completed her course of antibiotic. ASSESSMENT: 1. Deconditioning, difficulty walking. 2. Hypertension. 3. Metastatic breast cancer, locally invasive plus she has metastases in the cerebellum of the brain. 4. Hypothyroidism. PLAN: We will continue patient on current medications. I will switch her Decadron to p.o. Possible discharge home in a.m. Cathy Johnson MD
[2018-03-14] MEDS: Pantoprazole 40 mg EC Tab PO SCH (05:38)
[2018-03-14 09:00] VITALS: PULSE 93
[2018-03-14 10:37] VITALS: BP 128/70
--- NOTE | 2018-03-14 18:55 | DS ---
Copied To: Cathy Johnson MD Attending MD: Cathy Johnson MD HISTORY OF PRESENT ILLNESS: Patient is 77-year-old who came in because of increasing weakness, difficulty walking. No fever. No chills. No nausea, vomiting. No diarrhea. Only had difficulty walking. She was recently admitted in medical center, was told she has pneumonia. However, she had CT scan of the chest done that does not show any infiltrate; however, she has right chest wall growing tumor and she was also found to have cerebellar metastasis, so patient has been on IV Decadron. She was transferred to TCU for rehab. She did not do that well. She is only able to stand up, unable to walk because of generalized weakness, so she is being discharged today. PHYSICAL EXAMINATION: GENERAL: She is awake, alert, oriented, communicative. VITAL SIGNS: She is afebrile, pulse 93, respiration 20, blood pressure 128/70. LUNGS: Bilateral fair airflow. No rhonchi or crackle. HEART: S1 and S2 audible. ABDOMEN: Soft, obese, nontender. No rebound. No guarding. EXTREMITIES: Bilateral leg, +1 edema. NEUROLOGICAL: She is awake and alert, able to communicate. LABORATORY DATA: There is no new lab available today. She has rectal swab done that is negative for VRE. ASSESSMENT: 1. Metastatic breast cancer, locally invasive plus metastasis to cerebellum. 2. Hypertension. 3. Deconditioning and difficulty walking. 4. Hyperlipidemia. 5. Neuropathy. 6. History of deep vein thrombosis. PLAN: Patient will be discharged home today on Lyrica 50 mg daily, Decadron 4 mg twice a day, carvedilol 12.5 twice a day, Eliquis 5 mg twice a day, Lasix 20 mg daily, Lexapro 10 mg daily, Protonix 40 daily and Keppra 250 twice a day and she will be sent home on physical therapy. Cathy Johnson MD
== END 2018-03-14 13:33 | disposition home health service (06) | DRG 945 ==
LOC: TRCU 16:40
PROVIDERS: ADMIT Internal Medicine; ATTEND Internal Medicine
PROC: F07Z8FZ Transfer Training Treatment using Assistive, Adaptive, Supportive or Protective Equipment (ICD-10-PCS; principal; 2018-03-08)
PROC: F07Z5FZ Bed Mobility Treatment using Assistive, Adaptive, Supportive or Protective Equipment (ICD-10-PCS; 2018-03-08)
PROC: F07L6ZZ Therapeutic Exercise Treatment of Musculoskeletal System - Lower Back / Lower Extremity (ICD-10-PCS; 2018-03-08)
PROC: F08Z1FZ Dressing Techniques Treatment using Assistive, Adaptive, Supportive or Protective Equipment (ICD-10-PCS; 2018-03-09)
PROC: F08Z2FZ Grooming/Personal Hygiene Treatment using Assistive, Adaptive, Supportive or Protective Equipment (ICD-10-PCS; 2018-03-10)
DX: R53.1 Weakness (principal); J18.9 Pneumonia, unspecified organism; C79.31 Secondary malignant neoplasm of brain; J98.11 Atelectasis; N39.0 Urinary tract infection, site not specified; J90 Pleural effusion, not elsewhere classified; R26.2 Difficulty in walking, not elsewhere classified; L89.152 Pressure ulcer of sacral region, stage 2; I10 Essential (primary) hypertension; G62.9 Polyneuropathy, unspecified; D63.8 Anemia in other chronic diseases classified elsewhere; E78.5 Hyperlipidemia, unspecified; I25.10 Atherosclerotic heart disease of native coronary artery without angina pectoris; I89.0 Lymphedema, not elsewhere classified; I48.2 Chronic atrial fibrillation; G40.909 Epilepsy, unspecified, not intractable, without status epilepticus; Z16.21 Resistance to vancomycin; E03.9 Hypothyroidism, unspecified; S30.814A Abrasion of vagina and vulva, initial encounter; Z98.2 Presence of cerebrospinal fluid drainage device; Z85.3 Personal history of malignant neoplasm of breast; Z87.891 Personal history of nicotine dependence; Z86.718 Personal history of other venous thrombosis and embolism; Z80.3 Family history of malignant neoplasm of breast; Z88.8 Allergy status to other drugs, medicaments and biological substances; Z88.0 Allergy status to penicillin